=== PATIENT | male | born 1960 | race Two or more races ===

== ENCOUNTER 2024-02-15 09:46 | Inpatient (IN) | payer MEDICAID, SELFPAY ==
--- NOTE | 2024-02-15 10:29 | PD.EDRME ---
Rapid Medical Screening Exam RME Arrival date/time: 02/15/24 09:46 63-year-old male with a history of type 2 diabetes, hypertension was sent to the emergency room by his primary care provider for abnormal lab values. Patient states his primary care provider told him that he is to start dialysis due to acute kidney injury. I have greeted and performed a focused initial assessment of this patient. A comprehensive ED assessment and evaluation of the patient, analysis of all test results, and completion of the medical decision making process will be conducted by additional ED providers. Chief Complaint: General Adult/Misc Complain Vital signs reviewed by provider: Yes
[2024-02-15 10:51] VITALS: BP 152/82; PULSE 79; RESP 16; TEMP 37; O2SAT 99; BMI 31.6
[2024-02-15 11:25] LABS: Basophils % (Auto) 0 % (0-2.5); Eosinophils # (Auto) 0.2 Thou/mm3 (0.0-0.5); Eosinophils % (Auto) 4 % (0-10); Hematocrit 24.2 % (41.0-53.0); Immature Granulocytes % (Auto) 1 % (0-0); Immature Granulocytes Auto 0.03 Thou/mm3 (0.00-0.00); Lymphocytes # (Auto) 1.3 Thou/mm3 (1.0-4.8); Lymphocytes % (Auto) 31 % (10-50); Mean Corpuscular HGB Conc 33.9 g/dl (31.0-37.0); Mean Corpuscular Hemoglobin 30.4 pg (25.0-35.0); Mean Corpuscular Volume 90 fL (80-100); Monocytes # (Auto) 0.4 Thou/mm3 (0.0-0.8); Monocytes % (Auto) 11 % (0-12); Neutrophils # (Auto) 2.2 Thou/mm3 (1.8-7.7); Neutrophils % (Auto) 54 % (37-80); Nucleated Red Blood Cell % 0 /100 WBC (0); Platelet Count 285 Thou/mm3 (140-440); RDW Standard Deviation 42.8 fL (35.1-43.9); White Blood Count 4.1 Thou/mm3 (3.8-10.6)
[2024-02-15 11:46] LABS: INR 1.1 (0.9-1.3); Partial Thromboplastin Time 26.1 Seconds (22.0-36.0); Prothrombin Time 11.6 Seconds (9.0-12.2)
[2024-02-15 11:48] LABS: Alanine Aminotransferase 31 U/L (10-49); Albumin, Serum 4.9 gm/dL (3.4-4.8); Albumin/Globulin Ratio 1.8 (1.2-2.2); Alkaline Phosphatase 78 U/L (46-116); Anion Gap 10 (7-16); Aspartate Amino Transferase 24 U/L (0-34); BUN/Creatinine Ratio 19 Ratio (12-20); Bilirubin,Total 0.2 mg/dL (0.3-1.2); Blood Urea Nitrogen 80 mg/dL (9-23); Calcium 9.2 mg/dL (8.3-10.6); Calcium (Corrected) 9.2 mg/dL (8.5-10.1); Carbon Dioxide 19.7 mMol/L (20.0-31.0); Chloride 112 mMol/L (98-107); Creatinine (Component) 4.2 mg/dL (0.6-1.3); Estimated Creatinine Clearance 18.6 mL/min (>60); Globulin 2.7 gm/dL (2.3-3.5); Glucose 125 mg/dL (74-106); Lipase 22 U/L (12-53); Osmolality,Calculated 308 (275-295); Potassium 5.1 mMol/L (3.4-5.1); Sodium 142 mMol/L (136-145); Total Protein 7.6 gm/dL (5.7-8.2); eGFR 15 See Note
[2024-02-15 12:05] LABS: Collection Type, Urine Clean Catch; Squamous Epithelial Cell,Urine 0 /hpf (0-5)
[2024-02-15 12:14] LABS: Bilirubin,Urine Negative (Negative); Blood,Urine Negative (Negative); Clarity,Urine Clear (Clear/Hazy); Color,Urine Colorless (Lt Yel-Yel); Glucose, Urine 1+ (Negative); Ketones,Urine Negative (Negative); Leukocyte Esterase,Urine Negative (Negative); Nitrite,Urine Negative (Negative); Protein,Urine Trace (Neg - Trace); RBC,Urine 2 /hpf (0-3); Specific Gravity,Urine 1.014 (1.001-1.035); Urobilinogen,Urine Negative mg/dL (0.0-1.0); WBC,Urine < 1 /hpf (0-5)
[2024-02-15 12:38] LABS: Hemoglobin 8.2 g/dL (13.5-16.0)
--- NOTE | 2024-02-15 12:51 | EDNOTE_ITS ---
ED General RME/HPI General Chief complaint: General Adult/Misc Complain Stated complaint: SENT FOR ABNORMAL LABS Time Seen by Provider: 02/15/24 11:34 Arrival date/time: 02/15/24 09:46 CC: Renal failure patient referred to the ER via PCP for abnormal labs which includes kidney injury. Patient is somewhat stoic, has no specific complaints including chest pain shortness of breath or difficulty breathing. Patient was referred to the emergency room via Dr. Marina who is the security business analyst on consult, he is she is requested the patient hold his apixaban today and n.p.o. Patient agrees that he has not taken his medicine and has not had anything to eat. RME / HPI RME / HPI narrative: 02/15/24 09:46 63-year-old male with a history of type 2 diabetes, hypertension was sent to the emergency room by his primary care provider for abnormal lab values. Patient states his primary care provider told him that he is to start dialysis due to acute kidney injury. I have greeted and performed a focused initial assessment of this patient. A comprehensive ED assessment and evaluation of the patient, analysis of all test results, and completion of the medical decision making process will be conducted by additional ED providers. Related Data Home Medications ?Medication ?Instructions ?Recorded ?Confirmed fenofibrate 160 mg tablet 160 mg PO QDAY 06/07/22 06/07/22 insulin glargine 100 unit/mL (3 10 unit subcut QPM 06/07/22 06/07/22 mL) subcutaneous pen (Basaglar KwikPen U-100 Insulin) lisinopril 20 mg tablet 20 mg PO QDAY 06/07/22 06/07/22 semaglutide 7 mg tablet (Rybelsus) 7 mg PO QDAY 06/07/22 06/07/22 Previous Rx's ?Medication ?Instructions ?Recorded apixaban 5 mg tablet (Eliquis) 10 mg (2 x 5 mg) PO BID #28 tabs 06/27/23 Allergies Allergy/AdvReac Type Severity Reaction Status Date / Time No Known Drug Allergies Allergy Verified 06/27/23 16:31 Review of Systems Review of Systems Narrative Review of Systems: GEN: No fever, no chills, no weight loss EYES: No discharge, no visual changes, no pain HEENT: No ear pain, no congestion, no sore throat PULM: No shortness of breath, no cough, no congestion CV: No chest pain, no dyspnea on exertion, no palpitations GI: No nausea, no vomiting, no diarrhea, no pain, no constipation : No frequency, no urgency, no dysuria MUSC/SKEL: No joint pain, no back pain SKIN: No rash PSYCH: No hallucinations, no depression HEME/LYMPH: No easy bleeding or bruising tendencies NEURO: No weakness, no headache Past Medical History Past Medical History CARDIAC: Positive Hypertension; Negative Congestive Heart Failure RESPIRATORY: Negative Chronic Obstructive Pulmonary Disease (COPD) GENITOURINARY: Negative Renal Disease ENDOCRINE: Positive Diabetes Mellitus Type 2; Negative Diabetes Mellitus Type 1 Family History FAMILY HISTORY: Negative Family Neurologic Problems, Family Psychiatric Problems, Family Respiratory Disorders, Family Cardiac Disorders, Family Gastrointestinal Problems, Family Cancer, Family Surgery or Family Anesthesia Reaction Social History SMOKING STATUS: Never smoker SECOND HAND EXPOSURE: No SUBSTANCE USE: does not use ED Exam Narrative Physical exam: [General: Appears not in any acute distress Head normocephalic HEENT: Within acceptable limits Neck is supple nontender Chest equal chest rise nontender to palpation Respiratory: Clear to auscultation no wheezes crackles or rubs CV: Rate rhythm is regular no murmurs rubs or clicks Abdomen is soft nontender no masses positive bowel sounds all 4 quadrants Back: No CVA tenderness no spinous process tenderness from cervical spine thoracic and lumbar spine Skin: Intact no petechiae rash induration ulceration or crepitus Extremities: Moving all extremity against resistance cap refill less than 2 seconds neurosensory intact Neuro: Awake alert oriented x3 Glascow coma 15 no focal deficits] Course Quality Measures none Orders Category Date Time Status Saline [Insert IV] NOW Care 02/15/24 13:14 Active Consult to Nephrology Stat Cons 02/15/24 13:14 Ordered IR dialysis catheter insertion Stat Exams 02/15/24 Ordered CBC Stat Lab 02/15/24 10:43 Completed CMP [Comprehensive Metabolic Panel] Stat Lab 02/15/24 10:43 Completed Lipase Stat Lab 02/15/24 10:43 Completed PT [Prothrombin Time with INR] Stat Lab 02/15/24 10:43 Completed PTT [Partial Thromboplastin Time] Stat Lab 02/15/24 10:43 Completed Type and Screen Stat Lab 02/15/24 10:43 Received UA [Urinalysis] Stat Lab 02/15/24 11:57 Completed Urine Culture Stat Lab 02/15/24 11:57 Received Vital Signs Vital signs: Vital Signs Temperature 98.6 F 02/15/24 10:51 Pulse Rate 79 02/15/24 10:51 Respiratory Rate 16 02/15/24 10:51 Blood Pressure 152/82 H 02/15/24 10:51 Pulse Oximetry (%) 99 02/15/24 10:51 Oxygen Delivery Method Room Air 02/15/24 10:51 [facility] [place] Patient data External records reviewed:: [facility] previous records Clinical information provided by:: patient Social determinants that could affect healthcare access:: none Patient has the following chronic illnesses:: Diabetes hypertension on Eliquis How is presenting disease/condition affected by chronic disease/condition?: u neffected by Evaluation data The following diagnostics were reviewed and interpreted by me:: lab results and radiology exam(s) Lab and/or radiology exams considered but not ordered:: CBC shows WBC of 4.1 H&H of 8.2 and 24.2 respectively platelets of 285 CMP shows a sodium 142 potassium of 5.1 chloride of 112 CO2 of 19.7 BUN of 80 creatinine 4.2 with a glucose of 125 Urine is negative for urinary tract infection Coags within acceptable limits Interpretation Summary: Patient case discussed with Dr. Marina, nephrology, who is in the emergency room states she referred the patient to the ER for dialysis and dialysis catheter. Patient is in agreement with this plan the patient states he did not take his apixaban this morning, and has not eaten anything. I went ahead and put in the order for PermCath patient agrees to be admitted. Medications Medications considered but not ordered:: None Medication administrations:: None Consultations Consultation(s) initiated? (list below): Yes Consultation #1 (Physician, Specialty, Details): ashlie Time: 13:21 Diagnosis Differential Diagnosis ED Complaint MDM: Acute renal failure significant electrolyte imbalances anemia Most likely diagnosis given after review of the tests above:: FREEDOM anemia Admission Indicated Admission indicated?: indicated Explain why admission is indicated or not indicated:: Requires further medical management Admission Request Was there a request for admission?: No Disposition Plan Disposition Plan: Admit Medical Decision Making Differential Diagnosis Differential Diagnosis: Acute renal failure significant electrolyte imbalances anemia Lab Data 02/15/24 10:43 02/15/24 10:43 Labs: Lab Results 02/15/24 02/15/24 Range/Units 10:43 11:57 WBC 4.1 (3.8-10.6) Thou/mm3 RBC 2.70 L (4.50-5.90) Miln/mm3 Hgb 8.2 L (13.5-16.0) g/dL Hct 24.2 L (41.0-53.0) % MCV 90 (80-100) fL MCH 30.4 (25.0-35.0) pg MCHC 33.9 (31.0-37.0) g/dl RDW Std Deviation 42.8 (35.1-43.9) fL Plt Count 285 (140-440) Thou/mm3 Neut % (Auto) 54 (37-80) % Lymph % (Auto) 31 (10-50) % [place] % (Auto) 11 (0-12) % Eos % (Auto) 4 (0-10) % Baso % (Auto) 0 (0-2.5) % Neut # (Auto) 2.2 (1.8-7.7) Thou/mm3 Lymph # (Auto) 1.3 (1.0-4.8) Thou/mm3 [place] # (Auto) 0.4 (0.0-0.8) Thou/mm3 Eos # (Auto) 0.2 (0.0-0.5) Thou/mm3 Baso # (Auto) 0.0 (0.0-0.2) Thou/mm3 Immature Gran # (Auto) 0.03 H (0.00-0.00) Thou/mm3 Absolute Nucleated RBC 0.00 (0.00-0.00) Thou/mm3 Immature Gran % 1 H (0-0) % Nucleated RBC % 0 (0) /100 WBC PT 11.6 (9.0-12.2) Seconds INR 1.1 (0.9-1.3) APTT 26.1 (22.0-36.0) Seconds Sodium 142 (136-145) mMol/L Potassium 5.1 (3.4-5.1) mMol/L Chloride 112 H (98-107) mMol/L Carbon Dioxide 19.7 L (20.0-31.0) mMol/L Anion Gap 10 (7-16) BUN 80 H (9-23) mg/dL Creatinine 4.2 H* (0.6-1.3) mg/dL Estim Creat Clear Calc 18.6 L (>60) mL/min eGFR 15 L (60 - ) See Note BUN/Creatinine Ratio 19 (12-20) Ratio Glucose 125 H (74-106) mg/dL Calculated Osmolality 308 H (275-295) Calcium 9.2 (8.3-10.6) mg/dL Corrected Calcium 9.2 (8.5-10.1) mg/dL Total Bilirubin 0.2 L (0.3-1.2) mg/dL AST 24 (0-34) U/L ALT 31 (10-49) U/L Alkaline Phosphatase 78 (46-116) U/L Total Protein 7.6 (5.7-8.2) gm/dL Albumin 4.9 H (3.4-4.8) gm/dL Globulin 2.7 (2.3-3.5) gm/dL Albumin/Globulin Ratio 1.8 (1.2-2.2) Lipase 22 (12-53) U/L Ur Collection Type Clean Catch Urine Color Colorless A (Lt Yel-Yel) Urine Clarity Clear (Clear/Hazy) Urine pH 6.0 (5.0-7.0) Ur Specific [place] 1.014 (1.001-1.035) Urine Protein Trace (Neg - Trace) Urine Glucose (UA) 1+ A (Negative) Urine Ketones Negative (Negative) Urine Blood Negative (Negative) Urine Nitrite Negative (Negative) Urine Bilirubin Negative (Negative) Urine Urobilinogen (Auto) Negative (0.0-1.0) mg/dL Ur Leukocyte Esterase Negative (Negative) Urine RBC 2 (0-3) /hpf Urine WBC < 1 (0-5) /hpf Ur Squamous Epith Cells 0 (0-5) /hpf Urine Bacteria None (None) Discharge Plan Plan Patient Disposition: Other Care w/in Hosp (SDC/ALYCE) Patient condition on transfer: Stable Prescriptions/Referrals Prescriptions/Med Rec: No Action lisinopril 20 mg tablet 20 mg PO QDAY fenofibrate 160 mg tablet 160 mg PO QDAY Rybelsus 7 mg tablet 7 mg PO QDAY insulin glargine [Basaglar KwikPen U-100 Insulin] 100 unit/mL (3 mL) insulin pen 10 unit subcut QPM Eliquis 5 mg tablet 10 mg PO BID MDD 4 Qty: 28 0RF Referrals: Roxane([facility]ROLAN Sharpe [Primary Care Provider] - In 1 week Problem List Clinical Impression: Acute renal failure, Anemia Patient/Caregiver Discharge Instructions Print Language: Marshallese Stand Alone Forms: Lacey Award Info., Patient Portal Info Letter PA/ROCKET ENGINE COMPONENT MECHANIC Supervising Physician PA/ROCKET ENGINE COMPONENT MECHANIC Supervising Physician: Jorge Cortes ENP
--- NOTE | 2024-02-15 14:01 | PD.RESHP ---
Documentation for date of: 02/15/24 HPI History of Present Illness Chief complaint: Weakness History of present illness: 63-year-old male past medical history of hypertension, insulin-dependent diabetes, hyperlipidemia, status post right BKA (5 years ago) who presented to the ED from primary care physician office due to abnormal labs. Patient has been having weakness on and off for the whole year as well as left lower extremity edema. Patient states he feels tired most of the time but have on and off episodes of lethargy. Today patient went to PCP was found with abnormal labs and was sent to the ED in preparation for emergent dialysis. At this time patient denies any chest pain, shortness of breath, abdominal pain, nausea vomiting, diarrhea. Admitted for uremia and need for emergent dialysis. ED course: Vitals on admission significant for hypertension 152/82, labs significant for hemoglobin 8.2, bicarb 19.7, chloride 112 BUN 80, creatinine 4.2, glucose 125, UA was done was negative for infection PMHx: Hypertension, diabetes, hyperlipidemia SxHx: Right BKA Social Hx: Denies alcohol use, denies tobacco use, denies illicit substances including THC FHx: Unknown Review of Systems Review of Systems Narrative Review of Systems: Narrative ROS GENERAL: Denies fevers/chills or diaphoresis. HEENT: Denies headache or visual/hearing changes. Denies nasal discharge. NEURO: Denies unusual weakness or difficulty speaking. CARDIO: Denies chest pain or palpitations. PULM: Denies SOB, coughing, or wheezing. GI: Denies abdominal pain, N/V/C/D/reflux/gas, bright red blood per rectum or melena. Reports having BMs. URO: Denies burning/itching/pain/urinary changes. MSK/EXT/SKIN: Denies joint/skeletal/muscle pain, issues/changes in upper or lower extremities, itchiness, or superficial pain. PSYCH: Cooperative, pleasant mood & affect. The rest of the review of systems is otherwise negative. Exam Vital Signs Temp Pulse Resp BP Pulse Ox O2 Del Method 98.6 F 79 16 152/82 H 99 Room Air 02/15/24 10:51 02/15/24 10:51 02/15/24 10:51 02/15/24 10:51 02/15/24 10:51 02/15/24 10:51 Narrative Exam Physical Exam GENERAL: NAD, AAOx3 HEENT: Moist mucosa. Eyes open, symmetrical, & clear CARDIO: Heart RRR, no obvious murmurs PULM: No noted coughing/dyspnea CTA B/L, no R/W/R GI: Abdomen soft, nondistended, no pain on palpation. BSx4 SKIN/MSK/EXT: Right BKA with prosthesis, left lower extremity edema +1, no pain on palpation. Pedal pulses present B/L NEURO: AAOx3, no focal neuro deficits, able to move all 4 extremities Results: Labs 02/16/24 04:35 02/16/24 04:35 Labs: Short CBC 02/15/24 Range/Units 10:43 WBC 4.1 (3.8-10.6) Thou/mm3 Hgb 8.2 L (13.5-16.0) g/dL Hct 24.2 L (41.0-53.0) % Plt Count 285 (140-440) Thou/mm3 BMP 02/15/24 10:43 Sodium 142 Potassium 5.1 Chloride 112 H Carbon Dioxide 19.7 L BUN 80 H Creatinine 4.2 H* Glucose 125 H Calcium 9.2 Liver Function 02/15/24 Range/Units 10:43 Total Bilirubin 0.2 L (0.3-1.2) mg/dL AST 24 (0-34) U/L ALT 31 (10-49) U/L Alkaline Phosphatase 78 (46-116) U/L Albumin 4.9 H (3.4-4.8) gm/dL Urine 02/15/24 Range/Units 11:57 Urine Color Colorless A (Lt Yel-Yel) Urine Clarity Clear (Clear/Hazy) Urine pH 6.0 (5.0-7.0) Ur Specific [place] 1.014 (1.001-1.035) Urine Protein Trace (Neg - Trace) Urine Glucose (UA) 1+ A (Negative) Quality Measures Quality Measures none Medications Home Medications and Allergies Home Medications ?Medication ?Instructions ?Recorded ?Confirmed ?Type fenofibrate 160 mg tablet 160 mg PO QDAY 06/07/22 02/15/24 History insulin glargine 100 unit/mL (3 10 unit subcut QPM 06/07/22 02/15/24 History mL) subcutaneous pen (Basaglar KwikPen U-100 Insulin) lisinopril 20 mg tablet 10 mg PO QDAY 06/07/22 02/15/24 History semaglutide 7 mg tablet (Rybelsus) 7 mg PO QDAY 06/07/22 02/15/24 History Allergies Allergy/AdvReac Type Severity Reaction Status Date / Time No Known Drug Allergies Allergy Verified 06/27/23 16:31 Visit Medications Acetaminophen (Acetaminophen 325 Mg Tablet) 650 mg PO Q6H PRN PRN Reason: Fever >100.5 Stop: 03/16/24 13:46 Acetaminophen (Acetaminophen 325 Mg Tablet) 650 mg PO Q6H PRN PRN Reason: PAIN SCALE 1-3 (mild Stop: 03/16/24 13:46 Docusate Sodium (Docusate Sod 100 Mg Capsule) 100 mg PO QDAY [facility]; Protocol Stop: 03/17/24 08:59 Heparin Sodium (Porcine) (Heparin Sod Inj 5000 Unit/Ml Vial) 5,000 unit SC Q8HR MIKE Stop: 02/29/24 13:59 Ondansetron HCl (Ondansetron Inj 2 Mg/Ml Inj 2 Ml) 4 mg IV Q6H PRN; Protocol PRN Reason: NAUSEA OR VOMITING Stop: 03/16/24 13:46 Assessment & Plan Plan 63-year-old male with past medical history of hypertension, hyperlipidemia, insulin-dependent diabetes who was sent to the ED by PCP due to abnormal labs. Will be admitted for emergent dialysis due to uremia. #Uremia #Emergent dialysis #FREEDOM Patient is complaining of on and off weakness throughout the year, and lower extremity swelling Admission labs show BUN of 80, creatinine of 4.[address] Marina Baseline creatinine unknown -Pending dialysis catheter placement -Start hemodialysis -Nephrology, Dr. Marina consulted, appreciate recommendations #Hypertension Patient takes lisinopril at home, we will hold at this time due to FREEDOM # Insulin-dependent diabetes type 2 -Sliding scale insulin -Hypoglycemia protocol in place Case discussed with my senior Dr. Manriquez PGY-[address] Imani Leon MD PGY-1 Disposition: Telemetry Fluids: None Feeding: Thrombo prophylaxis: Heparin Gastric Ulcer prophylaxis: None CODE STATUS: Full code Attending Provider Attestation/Addendum I reviewed labs, imaging, EKG, home medications and prior available records. Face to face evaluation was performed by me. I have personally examined the patient and discussed assessment and plan with the IM team. I reviewed the resident note and agree with the plan with exceptions as below. ESRD Insulin-dependent diabetes mellitus New hemodialysis candidate Chronic anemia, likely anemia of CKD History of DVT Consult IR for dialysis line insertion Consulted nephrology to start hemodialysis Monitor BMP Monitor H&H Resume home insulin and monitor fingersticks Hold apixaban prior to dialysis line insertion
--- NOTE | 2024-02-15 14:43 | ESCONSULT_ITS ---
History of Present Illness Data of Consult Consult date: 02/15/24 Requesting Physician: Epifanio Diallo MD Primary Care Provider: Dell Betts([facility]) CONTACT C[facility] PROFESSIONAL Consult Narrative Reason for consult: FREEDOM--ESRD History of present illness: Mr. 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 However patient was very leery and did not come yesterday. He presented today complaining of tired and swelling in the lower extremities and weakness. Labs consistent with advanced kidney failure. Patient admitted to medical team. Nephrology consultation requested in view of need for dialysis. Patient stopped taking Eliquis yesterday. Will get dialysis catheter tomorrow and dialysis will be initiated tomorrow. In the emergency department-blood pressure 152/82, WBC 4.1, hemoglobin 8.2, platelets 285. Sodium 142, potassium 5.1, bicarbonate 19.7, BUN 80, creatinine 4.2, GFR 15, glucose 220, A1c 9.3, calcium 9.2, LFTs normal, albumin 4.9, urinalysis shows 1+ glucose. Patient currently seen in the emergency department. cc:: cc: Epifanio Diallo MD Review of Systems Review of Systems Narrative Review of Systems: CONSTITUTIONAL: Patient denies any fever, chills. Complaining of fatigue and tired HEENT: Denies any visual disturbances or hearing problems. CARDIOVASCULAR: Patient denies any chest pain. c/o shortness of breath, swelling in the lower extremities. PULMONARY: Patient c/o shortness of breath GASTROINTESTINAL: Patient denies any abdominal pain, constipation, nausea, vomiting, diarrhea. GENITOURINARY: Patient denies any urinary symptoms of burning or frequency or hematuria,++form in the urine. SKIN: Denies any rash. MUSCULOSKELETAL: Denies any muscular skeletal problems of joint pains. NEUROLOGICAL: Denies any neurological problems of strokes, seizures or confusion. Denies any memory problems. Past Medical History Past Medical History CARDIAC: Positive Hypercholesterolemia, Deep Vein Thrombosis (left leg on eliquis) and Hypertension; Negative Congestive Heart Failure RESPIRATORY: Negative Chronic Obstructive Pulmonary Disease (COPD) GENITOURINARY: Positive Renal Disease ENDOCRINE: Positive Diabetes Mellitus Type 2; Negative Diabetes Mellitus Type 1 HEMATOLOGIC: Negative Blood Disorders OTHER HISTORY: Positive Hospitalization (blood clot july 2023); Negative Falls or Cancer Family History FAMILY HISTORY: Negative Family Neurologic Problems, Family Psychiatric Problems, Family Respiratory Disorders, Family Cardiac Disorders, Family Gastrointestinal Problems, Family Cancer, Family Surgery or Family Anesthesia Reaction Surgical History SURGICAL: Positive Amputation (right BKA) Social History SMOKING STATUS: Former smoker SECOND HAND EXPOSURE: No SUBSTANCE USE: does not use Meds Home Medications and Allergies Home Medications ?Medication ?Instructions ?Recorded ?Confirmed ?Type fenofibrate 160 mg tablet 160 mg PO QDAY 06/07/22 02/15/24 History insulin glargine 100 unit/mL (3 10 unit subcut QPM 06/07/22 02/15/24 History mL) subcutaneous pen (Basaglar KwikPen U-100 Insulin) lisinopril 20 mg tablet 10 mg PO QDAY 06/07/22 02/15/24 History semaglutide 7 mg tablet (Rybelsus) 7 mg PO QDAY 06/07/22 02/15/24 History Allergies Allergy/AdvReac Type Severity Reaction Status Date / Time No Known Drug Allergies Allergy Verified 06/27/23 16:31 Exam Vital Signs Temp Pulse Resp BP Pulse Ox O2 Del Method 37.0 C 79 16 152/82 H 99 Room Air 02/15/24 10:51 02/15/24 10:51 02/15/24 10:51 02/15/24 10:51 02/15/24 10:51 02/15/24 10:51 Narrative Exam GENERAL APPEARANCE: Patient seems to be comfortable, adequately hydrated and nourished. HEENT: EOMI, PERRLA NECK: Neck supple, no JVD or bruit CARDIOVASCULAR: Heart regular, no murmurs LUNGS/CHEST: Chest clear to auscultation. No rales, rhonchi, wheezing ABDOMEN: Soft, nontender, nondistended. No masses. Normal bowel sounds. EXTREMITIES: No edema, clubbing or cyanosis. SKIN: Skin exam normal without any rashes MUSCULOSKELETAL: Rt BKA. Tense Edema in the left lower extremity NEUROLOGICAL : No neurological deficits Results Labs 02/16/24 04:35 02/15/24 10:43 Labs: Short CBC 02/15/24 Range/Units 10:43 WBC 4.1 (3.8-10.6) Thou/mm3 Hgb 8.2 L (13.5-16.0) g/dL Hct 24.2 L (41.0-53.0) % Plt Count 285 (140-440) Thou/mm3 BMP 02/15/24 10:43 Sodium 142 Potassium 5.1 Chloride 112 H Carbon Dioxide 19.7 L BUN 80 H Creatinine 4.2 H* Glucose 125 H Calcium 9.2 Liver Function 02/15/24 Range/Units 10:43 Total Bilirubin 0.2 L (0.3-1.2) mg/dL AST 24 (0-34) U/L ALT 31 (10-49) U/L Alkaline Phosphatase 78 (46-116) U/L Albumin 4.9 H (3.4-4.8) gm/dL Urine 02/15/24 Range/Units 11:57 Urine Color Colorless A (Lt Yel-Yel) Urine Clarity Clear (Clear/Hazy) Urine pH 6.0 (5.0-7.0) Ur Specific [place] 1.014 (1.001-1.035) Urine Protein Trace (Neg - Trace) Urine Glucose (UA) 1+ A (Negative) Assessment & Plan Assessment and plan (1) Acute renal failure: Status: Acute Assessment and plan: Patient has a worsening renal function with underlying CKD stage IV/V secondary to diabetic/hypertensive nephrosclerosis. Has been under my care for the last couple of years. Poorly controlled diabetes and hypertension. Sent to the hospital for need for dialysis due to his worsening azotemia. Patient consented for dialysis. Will place catheter tomorrow. On Eliquis for DVT-will be held (2) CKD stage 5 due to type 2 diabetes mellitus: Status: Acute Assessment and plan: CKD stage V secondary to diabetic nephropathy/hypertension. All the sequelae-anemia, renal osteodystrophy, nephropathy,, edema (3) Diabetes: Status: Acute Assessment and plan: Accu-Cheks, sliding scale. A1c 9.2. (4) Hypertension: Status: Acute Assessment and plan: At home he is on lisinopril-can be initiated as patient will start dialysis. (5) Anemia: Status: Acute Assessment and plan: Will give iron, Epogen with dialysis (6) Hyperlipidemia: Status: Acute Assessment and plan: Switch fenofibrate to statin. Additional Assessment & Plan Additional Plan: Thank you Dr. Diallo for allowing me to participate in the care of Mr. Arreaga
--- NOTE | 2024-02-15 14:52 | PC.NURSE ---
Called laborer chees[employer] what time they will do catheter placement, per Dr. Grullon they will do it tomorrow d/t pt was on blood thinner. Dr. Marina aware.
--- NOTE | 2024-02-15 14:55 | PC.NURSE ---
notified ER nurse of postponed procedure until tomorrow per md jimenez orders. MD jimenez recommend to hold blood thinners and draw coag in the morning.
--- NOTE | 2024-02-15 14:56 | PC.NURSE ---
SPOKE WITH NURSE FROM [facility]. NURSE STATES THAT THEY ARE GOING TO POSTPONE PT'S DIALYSIS CATH PLACEMENT TILL TOMORROW AND TO HAVE ANY BLOOD THINNERS HELD TILL AFTER PROCEDURE IS DONE. WILL INFORM PRIMARY NURSE AND MD AT THIS TIME
[2024-02-15 15:01] LABS: Glucose Estimated Average 220 mg/dL (80-131); Hemoglobin A1C 9.3 % Hgb (4.8-6.0)
[2024-02-15 15:33] VITALS: BP 149/79; PULSE 80; RESP 18; TEMP 37.1; O2SAT 100
--- NOTE | 2024-02-15 15:44 | PC.NURSE ---
INFORMED DR COBOS THAT PT'S DIALYSIS CATHETER INSERTION WAS POSTPONED TILL TOMORROW PER [facility] NURSE AND THEY WANT ALL BLOOD THINNERS HELD AT THIS TIME TILL AFTER CATHETER IS PLACED. OKAY PER DR COBOS
[2024-02-15 20:17] VITALS: BP 145/84; PULSE 74; RESP 19; TEMP 37.1; O2SAT 100
[2024-02-15 20:20] VITALS: PULSE 74
[2024-02-16] VITALS (22 sets, daily range): BP systolic 113–170; BP diastolic 55–91; PULSE 68–84; RESP 16–27; TEMP 36.1–36.9; O2SAT 94–100; BMI 23.9
--- NOTE | 2024-02-16 | XR_ITS ---
Ultrasound-guided needle placement right internal jugular vein Permanent tunneled dialysis catheter insertion, percutaneous Fluoroscopy AP chest, portable, INDICATIONS: Renal failure, need for stat and long-term dialysis with a permanent tunneled dialysis catheter Date and time of procedure: February 16, 2024 at 1440 hours Informed consent provided Technique: A timeout was completed verifying correct patient, procedure, site, positioning, and special equipment if applicable. The patient was placed in a dependent position appropriate for dialysis catheter placement based on the vein to be cannulated. The patient'sright neck was prepped and draped in sterile fashion. Maximum Sterile Barrier Technique used including cap, mask, sterile gown, sterile gloves, and sterile full body drape. If ultrasound technique used: sterile gel and sterile probe covers. Hand Hygiene performed using proper scrub, soap and water, or alcohol-based hand rub. 1% lidocaine was used to anesthetize the surrounding skin area The [facility] [employer] portable ultrasound apparatus utilized to confirm patency of the right internal jugular vein Utilizing ultrasonographic guidance successful 21-gauge needle puncture right internal jugular vein. Ultrasound images were recorded and stored. Vessel micropuncture was performed with 21-gauge needle. 0.18 wire guide is introduced into the vein. 0.18 wire is introduced into the vena cava under fluoroscopy. Subcutaneous tunnel formed in the upper chest. Permanent tunneled dialysis catheter placed in the subcutaneous tunnel. Dilators were introduced over the J-wire guide. Tunneled dialysis catheter is introduced through a dilator with venous sheath into the superior vena cava under fluoroscopic guidance. The catheter is sutured in place to the skin and a sterile dressing applied. Perfusion to the extremity distal to the point of catheter insertion is checked and found to be adequate Attending radiologist was present for the entire procedure Estimated blood loss2 cc. The patient tolerated the procedure well and there were no complications Impression: Successful ultrasound-guided needle placement right internal jugular vein Successful permanent tunneled dialysis catheter insertion, percutaneous Fluoroscopy 0.2 minute radiation dose 1.89 milligray 1 spot fluoroscopic chest film. AP chest performed at completion procedure demonstrates satisfactory position dialysis catheter. May use dialysis catheter.
--- NOTE | 2024-02-16 06:15 | PC.NURSE ---
PT RECEIVED FROM TELE VIA BED. RESIDENT LATVIAN SPEAKING. ALERT, ORIENTED, SMILING NO COMPLAINTS OF PAIN/DISCOMFORT. PT SITUATED IN ROOM, CALL LIGHT PROVIDED, BED LOWEST POSITION. PT REMAINS NPO AND REMINDED PT NOT TO EAT OR DRINK. RESUME CARE.
[2024-02-16 06:16] LABS: Basophils % (Auto) 0 % (0-2.5); Eosinophils # (Auto) 0.2 Thou/mm3 (0.0-0.5); Eosinophils % (Auto) 4 % (0-10); Hematocrit 24.9 % (41.0-53.0); Immature Granulocytes % (Auto) 0 % (0-0); Immature Granulocytes Auto 0.02 Thou/mm3 (0.00-0.00); Lymphocytes # (Auto) 1.9 Thou/mm3 (1.0-4.8); Lymphocytes % (Auto) 37 % (10-50); Mean Corpuscular HGB Conc 33.7 g/dl (31.0-37.0); Mean Corpuscular Hemoglobin 30.3 pg (25.0-35.0); Mean Corpuscular Volume 90 fL (80-100); Monocytes # (Auto) 0.5 Thou/mm3 (0.0-0.8); Monocytes % (Auto) 9 % (0-12); Neutrophils # (Auto) 2.6 Thou/mm3 (1.8-7.7); Neutrophils % (Auto) 50 % (37-80); Nucleated Red Blood Cell % 0 /100 WBC (0); Platelet Count 300 Thou/mm3 (140-440); RDW Standard Deviation 43.4 fL (35.1-43.9); Red Blood Count 2.77 Miln/mm3 (4.50-5.90); White Blood Count 5.2 Thou/mm3 (3.8-10.6)
[2024-02-16 06:33] LABS: Hemoglobin 8.4 g/dL (13.5-16.0)
[2024-02-16 06:58] LABS: Alanine Aminotransferase 32 U/L (10-49); Albumin, Serum 4.9 gm/dL (3.4-4.8); Albumin/Globulin Ratio 1.8 (1.2-2.2); Alkaline Phosphatase 62 U/L (46-116); Anion Gap 11 (7-16); Aspartate Amino Transferase 27 U/L (0-34); BUN/Creatinine Ratio 18 Ratio (12-20); Bilirubin,Total 0.3 mg/dL (0.3-1.2); Blood Urea Nitrogen 72 mg/dL (9-23); Calcium 9.3 mg/dL (8.3-10.6); Calcium (Corrected) 9.3 mg/dL (8.5-10.1); Cardiac Risk Estimate 2.8 RATIO (4.0-6.7); Chloride 111 mMol/L (98-107); Cholesterol 125 mg/dL (132-200); Estimated Creatinine Clearance 16.9 mL/min (>60); Globulin 2.7 gm/dL (2.3-3.5); Glucose 106 mg/dL (74-106); HDL Cholesterol 44 mg/dL (40-60); LDL Cholesterol,Calculated 55 mg/dL (0-130); Magnesium 2.5 mg/dL (1.6-2.6); Osmolality,Calculated 304 (275-295); Phosphorous 4.2 mg/dL (2.4-5.1); Potassium 4.8 mMol/L (3.4-5.1); Sodium 142 mMol/L (136-145); Total Protein 7.6 gm/dL (5.7-8.2); Triglycerides 130 mg/dL (30-150); eGFR 16 See Note
[2024-02-16 08:21] LABS: Hepatitis A Antibody IgM Non Reactive (Non React); Hepatitis B Core Antibody IgM Non Reactive (Non React); Hepatitis B Surface Antigen Non Reactive (Non React); Hepatitis C Antibody Non Reactive (Non React)
--- NOTE | 2024-02-16 08:55 | PD.NEPHPROG ---
Documentation for date of: 02/16/24 Subjective Subjective Interval history: Mr. 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 However patient was very leery and did not come yesterday. He presented today complaining of tired and swelling in the lower extremities and weakness. Labs consistent with advanced kidney failure. Patient admitted to medical team. Nephrology consultation requested in view of need for dialysis. Patient stopped taking Eliquis yesterday. Will get dialysis catheter tomorrow and dialysis will be initiated tomorrow. In the emergency department-blood pressure 152/82, WBC 4.1, hemoglobin 8.2, platelets 285. Sodium 142, potassium 5.1, bicarbonate 19.7, BUN 80, creatinine 4.2, GFR 15, glucose 220, A1c 9.3, calcium 9.2, LFTs normal, albumin 4.9, urinalysis shows 1+ glucose. Patient currently seen in the emergency department. 02/16/2024 patient got a permanent dialysis catheter and is currently on dialysis. Labs, medications reviewed. Shortness of breath slightly better. Edema better. Review of Systems Review of Systems Narrative Review of Systems: CONSTITUTIONAL: Patient denies any fever, chills. Complaining of fatigue and tired HEENT: Denies any visual disturbances or hearing problems. CARDIOVASCULAR: Patient denies any chest pain. c/o shortness of breath, swelling in the lower extremities. PULMONARY: Patient c/o shortness of breath GASTROINTESTINAL: Patient denies any abdominal pain, constipation, nausea, vomiting, diarrhea. GENITOURINARY: Patient denies any urinary symptoms of burning or frequency or hematuria,++form in the urine. SKIN: Denies any rash. MUSCULOSKELETAL: Denies any muscular skeletal problems of joint pains. NEUROLOGICAL: Denies any neurological problems of strokes, seizures or confusion. Denies any memory problems. Exam Vital Signs Temp Pulse Resp BP Pulse Ox O2 Del Method 36.2 C 72 19 131/80 H 99 Room Air 02/16/24 08:00 02/16/24 08:00 02/16/24 08:00 02/16/24 08:00 02/16/24 08:00 02/16/24 08:00 Narrative Exam GENERAL APPEARANCE: Patient seems to be comfortable, adequately hydrated and nourished. HEENT: EOMI, PERRLA NECK: Neck supple, no JVD or bruit CARDIOVASCULAR: Heart regular, no murmurs LUNGS/CHEST: Chest clear to auscultation. No rales, rhonchi, wheezing ABDOMEN: Soft, nontender, nondistended. No masses. Normal bowel sounds. EXTREMITIES: No edema, clubbing or cyanosis. SKIN: Skin exam normal without any rashes MUSCULOSKELETAL: Rt BKA. Tense Edema in the left lower extremity NEUROLOGICAL : No neurological deficits Objective Labs 02/18/24 06:03 02/18/24 06:03 Labs: Laboratory Results - last 24 hr 02/15/24 02/15/24 02/16/24 10:43 11:57 04:35 WBC 4.1 5.2 RBC 2.70 L 2.77 L Hgb 8.2 L 8.4 L Hct 24.2 L 24.9 L MCV 90 90 MCH 30.4 30.3 MCHC 33.9 33.7 RDW Std Deviation 42.8 43.4 Plt Count 285 300 Neut % (Auto) 54 50 Lymph % (Auto) 31 37 [place] % (Auto) 11 9 Eos % (Auto) 4 4 Baso % (Auto) 0 0 Neut # (Auto) 2.2 2.6 Lymph # (Auto) 1.3 1.9 [place] # (Auto) 0.4 0.5 Eos # (Auto) 0.2 0.2 Baso # (Auto) 0.0 0.0 Immature Gran # (Auto) 0.03 H 0.02 H Absolute Nucleated RBC 0.00 0.00 Immature Gran % 1 H 0 Nucleated RBC % 0 0 PT 11.6 INR 1.1 APTT 26.1 Sodium 142 142 Potassium 5.1 4.8 Chloride 112 H 111 H Carbon Dioxide 19.7 L 20.0 Anion Gap 10 11 BUN 80 H 72 H Creatinine 4.2 H* 4.0 H Estim Creat Clear Calc 18.6 L 16.9 L eGFR 15 L 16 L BUN/Creatinine Ratio 19 18 Glucose [address] Glu mg/dL 220 H Hemoglobin A1c 9.3 H Calculated Osmolality 308 H 304 H Calcium 9.2 9.3 Corrected Calcium 9.2 9.3 Phosphorus 4.2 Magnesium 2.5 Total Bilirubin 0.2 L 0.3 AST 24 27 ALT 31 32 Alkaline Phosphatase 78 62 D Total Protein 7.6 7.6 Albumin 4.9 H 4.9 H Globulin 2.7 2.7 Albumin/Globulin Ratio 1.8 1.8 Triglycerides 130 Cholesterol 125 L LDL Cholesterol, Calc 55 HDL Cholesterol 44 Cholesterol/HDL Ratio 2.8 L Lipase 22 TSH 1.70 Ur Collection Type Clean Catch Urine Color Colorless A Urine Clarity Clear Urine pH 6.0 Ur Specific [place] 1.014 Urine Protein Trace Urine Glucose (UA) 1+ A Urine Ketones Negative Urine Blood Negative Urine Nitrite Negative Urine Bilirubin Negative Urine Urobilinogen (Auto) Negative Ur Leukocyte Esterase Negative Urine RBC 2 Urine WBC < 1 Ur Squamous Epith Cells 0 Urine Bacteria None Hepatitis A IgM Ab Non Reactive Hep Bs Antigen Non Reactive Hep B Core IgM Ab Non Reactive Hepatitis C Antibody Non Reactive Blood Type O Positive Antibody Screen NEGATIVE Blood Bank Wristband ID Yes Assessment & Plan Assessment and plan (1) Acute renal failure: Status: Acute (2) CKD stage 5 due to type 2 diabetes mellitus: Status: Acute (3) Diabetes: Status: Acute (4) Hypertension: Status: Acute (5) Anemia: Status: Acute (6) Hyperlipidemia: Status: Acute Additional Assessment & Plan Additional Plan: (1) end-stage renal failure: Status: Acute Assessment and plan: Patient has a worsening renal function with underlying CKD stage IV/V secondary to diabetic/hypertensive nephrosclerosis progressed towards ESRD.. Has been under my care for the last couple of years. Poorly controlled diabetes and hypertension. Sent to the hospital for need for dialysis due to his worsening azotemia. Patient consented for dialysis. Dialysis catheter placed. Patient currently seen on dialysis. Tolerating dialysis without any problems. Hemodialysis for 2 hours, 2K, ultrafiltration 1 L, Epogen 6000, no heparin ordered. Plan of care discussed with the dialysis nurse. Please see dialysis flowsheet for further details. (2) CKD stage 5 due to type 2 diabetes mellitus: Status: Acute Assessment and plan: CKD stage V secondary to diabetic nephropathy/hypertension-progressed to ESRD All the sequelae-anemia, renal osteodystrophy, nephropathy,, edema (3) Diabetes: Status: Acute Assessment and plan: Accu-Cheks, sliding scale. A1c 9.2. (4) Hypertension: Status: Acute Assessment and plan: At home he is on lisinopril-can be initiated as patient will start dialysis. (5) Anemia: Status: Acute Assessment and plan: Will give iron, Epogen with dialysis (6) Hyperlipidemia: Status: Acute Assessment and plan: on statin. Quality - progress note Quality Measures Quality Measures: VTE prophylaxis Reason for Continued Stay Reason for Continued Stay: further monitoring
[2024-02-16] MEDS: Lisinopril 2.5 MG TABLET 10 MG PO (09:49)
--- NOTE | 2024-02-16 10:30 | PD.RESPRO ---
Documentation for date of: 02/16/24 Subjective Subjective Interval history: Patient seen today at the bedside found awake, alert, oriented x 3. No overnight events reported. Vital signs stable at this time. Labs significant for anion worsening kidney function. Patient is pending hemodialysis catheter placement and begin hemodialysis sessions today. Blood pressure found to be elevated started lisinopril as taken at home as recommended by nephrology. Exam Vital Signs Temp Pulse Resp BP Pulse Ox O2 Del Method 97.2 F 72 19 131/80 H 99 Room Air 02/16/24 08:00 02/16/24 09:49 02/16/24 08:00 02/16/24 09:49 02/16/24 08:00 02/16/24 08:00 Narrative Exam Physical Exam GENERAL: NAD, AAOx3 HEENT: Moist mucosa. Eyes open, symmetrical, & clear CARDIO: Heart RRR, no obvious murmurs PULM: No noted coughing/dyspnea CTA B/L, no R/W/R GI: Abdomen soft, nondistended, no pain on palpation. BSx4 SKIN/MSK/EXT: Right BKA with prosthesis, left lower extremity edema +1, no pain on palpation. Pedal pulses present B/L NEURO: AAOx3, no focal neuro deficits, able to move all 4 extremities Objective Labs 02/16/24 04:35 02/16/24 04:35 Labs: Laboratory Results - last 24 hr 02/15/24 02/15/24 02/16/24 10:43 11:57 04:35 WBC 4.1 5.2 RBC 2.70 L 2.77 L Hgb 8.2 L 8.4 L Hct 24.2 L 24.9 L MCV 90 90 MCH 30.4 30.3 MCHC 33.9 33.7 RDW Std Deviation 42.8 43.4 Plt Count 285 300 Neut % (Auto) 54 50 Lymph % (Auto) 31 37 [place] % (Auto) 11 9 Eos % (Auto) 4 4 Baso % (Auto) 0 0 Neut # (Auto) 2.2 2.6 Lymph # (Auto) 1.3 1.9 [place] # (Auto) 0.4 0.5 Eos # (Auto) 0.2 0.2 Baso # (Auto) 0.0 0.0 Immature Gran # (Auto) 0.03 H 0.02 H Absolute Nucleated RBC 0.00 0.00 Immature Gran % 1 H 0 Nucleated RBC % 0 0 PT 11.6 INR 1.1 APTT 26.1 Sodium 142 142 Potassium 5.1 4.8 Chloride 112 H 111 H Carbon Dioxide 19.7 L 20.0 Anion Gap 10 11 BUN 80 H 72 H Creatinine 4.2 H* 4.0 H Estim Creat Clear Calc 18.6 L 16.9 L eGFR 15 L 16 L BUN/Creatinine Ratio 19 18 Glucose [address] Glu mg/dL 220 H Hemoglobin A1c 9.3 H Calculated Osmolality 308 H 304 H Calcium 9.2 9.3 Corrected Calcium 9.2 9.3 Phosphorus 4.2 Magnesium 2.5 Total Bilirubin 0.2 L 0.3 AST 24 27 ALT 31 32 Alkaline Phosphatase 78 62 D Total Protein 7.6 7.6 Albumin 4.9 H 4.9 H Globulin 2.7 2.7 Albumin/Globulin Ratio 1.8 1.8 Triglycerides 130 Cholesterol 125 L LDL Cholesterol, Calc 55 HDL Cholesterol 44 Cholesterol/HDL Ratio 2.8 L Lipase 22 TSH 1.70 Ur Collection Type Clean Catch Urine Color Colorless A Urine Clarity Clear Urine pH 6.0 Ur Specific [place] 1.014 Urine Protein Trace Urine Glucose (UA) 1+ A Urine Ketones Negative Urine Blood Negative Urine Nitrite Negative Urine Bilirubin Negative Urine Urobilinogen (Auto) Negative Ur Leukocyte Esterase Negative Urine RBC 2 Urine WBC < 1 Ur Squamous Epith Cells 0 Urine Bacteria None Hepatitis A IgM Ab Non Reactive Hep Bs Antigen Non Reactive Hep B Core IgM Ab Non Reactive Hepatitis C Antibody Non Reactive Blood Type O Positive Antibody Screen NEGATIVE Blood Bank Wristband ID Yes Quality Measures Quality Measures none Assessment & Plan Assessment Current Active Medications: Generic Name Dose Route Start Last Admin Trade Name Freq PRN Reason Stop Dose Admin Acetaminophen 650 mg 02/15/24 13:47 Acetaminophen 325 Mg Tablet PO 03/16/24 13:46 Q6H PRN Fever >100.5 Acetaminophen 650 mg 02/15/24 13:47 Acetaminophen 325 Mg Tablet PO 03/16/24 13:46 Q6H PRN PAIN SCALE 1-3 (mild Atorvastatin Calcium 20 mg 02/16/24 21:00 Atorvastatin Calcium 20 Mg Tablet PO 03/17/24 20:59 HS MIKE Dextrose 25 ml 02/15/24 14:19 Dextrose 50%-Water Inj 50 Ml Syringe IV 03/16/24 14:18 Q15MIN PRN BG 50-70 responsive npo pt Dextrose 50 ml 02/15/24 14:19 Dextrose 50%-Water Inj 50 Ml Syringe IV 03/16/24 14:18 Q15MIN PRN BG <50 OR BG <70 & pt unresponsive Docusate Sodium 100 mg 02/16/24 09:00 02/16/24 09:49 Docusate Sod 100 Mg Capsule PO 03/17/24 08:59 Not Given QDAY [facility] Protocol Glucagon 1 mg 02/15/24 14:19 Glucagon Inj 1 Mg Vial IM Q15MIN PRN BG <70, and no IV access Heparin Sodium (Porcine) 5,000 unit 02/15/24 14:00 02/15/24 14:56 Heparin Sod Inj 5000 Unit/Ml Vial SC 02/29/24 13:59 Not Given Q8HR [facility] Insulin Human Lispro 0 unit 02/15/24 17:00 02/16/24 08:24 Insulin Lispro (Admelog) 1 Unit/0.01 Ml Unit SC 03/16/24 16:59 Not Given AC [facility] Protocol Lisinopril 10 mg 02/16/24 09:00 02/16/24 09:49 Lisinopril 2.5 Mg Tablet PO 03/17/24 08:59 10 mg QDAY MIKE Administration Ondansetron HCl 4 mg 02/15/24 13:47 Ondansetron Inj 2 Mg/Ml Inj 2 Ml IV 03/16/24 13:46 Q6H PRN NAUSEA OR VOMITING Protocol Pharmacy Consult 1 each 02/16/24 09:00 Pharmacy To Consult Pneumovacc XX 03/17/24 08:59 PRN PRN CONSULT Plan 63-year-old male with past medical history of hypertension, hyperlipidemia, insulin-dependent diabetes who was sent to the ED by PCP due to abnormal labs. Will be admitted for emergent dialysis due to uremia. #Uremia #Emergent dialysis #FREEDOM Patient is complaining of on and off weakness throughout the year, and lower extremity swelling Admission labs show BUN of 80, creatinine of 4.[address] Marina Baseline creatinine unknown -Pending dialysis catheter placement -Start hemodialysis -Nephrology, Dr. Marina consulted, appreciate recommendations #Hypertension Patient takes lisinopril at home, we will hold at this time due to FREEDOM Resume lisinopril 20 mg daily as taken at home # Insulin-dependent diabetes type 2 -Sliding scale insulin -Hypoglycemia protocol in place Case discussed with my senior Dr. Manriquez PGY-[address] Imani Leon MD PGY-1 Disposition: Telemetry Fluids: None Feeding: Thrombo prophylaxis: Heparin Gastric Ulcer prophylaxis: None CODE STATUS: Full code Attending Provider Attestation/Addendum I reviewed labs, imaging, EKG, home medications and prior available records. Face to face evaluation was performed by me. I have personally examined the patient and discussed assessment and plan with the IM team. I reviewed the resident note and agree with the plan with exceptions as below. ESRD Insulin-dependent diabetes mellitus New hemodialysis candidate Chronic anemia, likely anemia of CKD History of DVT Consult IR for dialysis line insertion Consulted nephrology to start hemodialysis Monitor BMP Monitor H&H Resume home insulin and monitor fingersticks Hold apixaban prior to dialysis line insertion
[2024-02-16] MEDS: TUBERCULIN PPD INJ 5 UNIT/0.1 ML DOSE ID (12:00)
[2024-02-16] MEDS: SODIUM CHLORIDE 0.9% 250 ML 250 ML 20 ML IV (14:55)
[2024-02-16] MEDS: HEPARIN SOD LOCK SYR 100 UNIT/ML 500 UNIT INTRACATH (15:00)
[2024-02-16] MEDS: fentaNYL CIT INJ 50 mCg/ML AMP 2ML 75 MCG IVP (15:18)
[2024-02-16] MEDS: HEPARIN SOD INJ 5000 UNIT/ML VIAL 10 ML 3300 UNIT INTRACATH (15:52)
[2024-02-16] MEDS: HEPARIN SOD INJ 1000 UNIT/ML VIAL 10 ML 3300 UNIT INDWELLCAT (18:19)
[2024-02-16] MEDS: ATORVASTATIN CALCIUM 20 MG TABLET PO (21:19)
[2024-02-17] VITALS (21 sets, daily range): BP systolic 91–179; BP diastolic 56–94; PULSE 66–82; RESP 15–20; TEMP 36.2–36.9; O2SAT 95–99
[2024-02-17 05:49] LABS: Basophils % (Auto) 0 % (0-2.5); Eosinophils # (Auto) 0.1 Thou/mm3 (0.0-0.5); Eosinophils % (Auto) 3 % (0-10); Hematocrit 23.4 % (41.0-53.0); Immature Granulocytes % (Auto) 0 % (0-0); Immature Granulocytes Auto 0.01 Thou/mm3 (0.00-0.00); Lymphocytes # (Auto) 1.3 Thou/mm3 (1.0-4.8); Lymphocytes % (Auto) 27 % (10-50); Mean Corpuscular HGB Conc 34.6 g/dl (31.0-37.0); Mean Corpuscular Hemoglobin 30.7 pg (25.0-35.0); Mean Corpuscular Volume 89 fL (80-100); Monocytes # (Auto) 0.5 Thou/mm3 (0.0-0.8); Monocytes % (Auto) 11 % (0-12); Neutrophils # (Auto) 2.9 Thou/mm3 (1.8-7.7); Neutrophils % (Auto) 59 % (37-80); Nucleated Red Blood Cell % 0 /100 WBC (0); Platelet Count 260 Thou/mm3 (140-440); Red Blood Count 2.64 Miln/mm3 (4.50-5.90); White Blood Count 4.9 Thou/mm3 (3.8-10.6)
[2024-02-17 05:54] LABS: Hemoglobin 8.1 g/dL (13.5-16.0)
[2024-02-17 06:18] LABS: Alanine Aminotransferase 31 U/L (10-49); Albumin, Serum 4.5 gm/dL (3.4-4.8); Albumin/Globulin Ratio 1.7 (1.2-2.2); Alkaline Phosphatase 57 U/L (46-116); Anion Gap 10 (7-16); Aspartate Amino Transferase 19 U/L (0-34); BUN/Creatinine Ratio 16 Ratio (12-20); Bilirubin,Total 0.3 mg/dL (0.3-1.2); Blood Urea Nitrogen 55 mg/dL (9-23); Calcium 9.1 mg/dL (8.3-10.6); Calcium (Corrected) 9.1 mg/dL (8.5-10.1); Carbon Dioxide 24.5 mMol/L (20.0-31.0); Chloride 105 mMol/L (98-107); Creatinine (Component) 3.5 mg/dL (0.6-1.3); Estimated Creatinine Clearance 19.3 mL/min (>60); Globulin 2.7 gm/dL (2.3-3.5); Glucose 198 mg/dL (74-106); Magnesium 2.2 mg/dL (1.6-2.6); Osmolality,Calculated 298 (275-295); Phosphorous 4.7 mg/dL (2.4-5.1); Potassium 4.3 mMol/L (3.4-5.1); Sodium 139 mMol/L (136-145); Total Protein 7.2 gm/dL (5.7-8.2); eGFR 19 See Note
[2024-02-17] MEDS: INSULIN LISPRO (AdmeLOG) 1 UNIT/0.01 ML UNIT SC ×3 (07:54→17:19)
--- NOTE | 2024-02-17 08:33 | PD.RESPRO ---
Documentation for date of: 02/17/24 Exam Vital Signs Temp Pulse Resp BP Pulse Ox O2 Del Method O2 Flow Rate 98.4 F 70 18 124/76 97 Room Air 2 02/17/24 08:17 02/17/24 08:30 02/17/24 08:17 02/17/24 08:30 02/17/24 08:17 02/17/24 04:00 02/16/24 15:30 Objective Labs 02/17/24 04:22 02/17/24 04:22 Labs: Laboratory Results - last 24 hr 02/17/24 04:22 WBC 4.9 RBC 2.64 L Hgb 8.1 L Hct 23.4 L MCV 89 MCH 30.7 MCHC 34.6 RDW Std Deviation 42.0 Plt Count 260 D Neut % (Auto) 59 Lymph % (Auto) 27 [place] % (Auto) 11 Eos % (Auto) 3 Baso % (Auto) 0 Neut # (Auto) 2.9 Lymph # (Auto) 1.3 [place] # (Auto) 0.5 Eos # (Auto) 0.1 Baso # (Auto) 0.0 Immature Gran # (Auto) 0.01 H Absolute Nucleated RBC 0.00 Immature Gran % 0 Nucleated RBC % 0 Sodium 139 Potassium 4.3 D Chloride 105 Carbon Dioxide 24.5 Anion Gap 10 BUN 55 H Creatinine 3.5 H D Estim Creat Clear Calc 19.3 L eGFR 19 L BUN/Creatinine Ratio 16 Glucose 198 H D Calculated Osmolality 298 H Calcium 9.1 Corrected Calcium 9.1 Phosphorus 4.7 Magnesium 2.2 Total Bilirubin 0.3 AST 19 ALT 31 Alkaline Phosphatase 57 Total Protein 7.2 Albumin 4.5 Globulin 2.7 Albumin/Globulin Ratio 1.7 Quality Measures Quality Measures none Assessment & Plan Assessment Current Active Medications: Generic Name Dose Route Start Last Admin Trade Name Freq PRN Reason Stop Dose Admin Acetaminophen 650 mg 02/15/24 13:47 Acetaminophen 325 Mg Tablet PO 03/16/24 13:46 Q6H PRN Fever >100.5 Acetaminophen 650 mg 02/15/24 13:47 Acetaminophen 325 Mg Tablet PO 03/16/24 13:46 Q6H PRN PAIN SCALE 1-3 (mild Atorvastatin Calcium 20 mg 02/16/24 21:00 02/16/24 21:19 Atorvastatin Calcium 20 Mg Tablet PO 03/17/24 20:59 20 mg HS MIKE Administration Dextrose 25 ml 02/15/24 14:19 Dextrose 50%-Water Inj 50 Ml Syringe IV 03/16/24 14:18 Q15MIN PRN BG 50-70 responsive npo pt Dextrose 50 ml 02/15/24 14:19 Dextrose 50%-Water Inj 50 Ml Syringe IV 03/16/24 14:18 Q15MIN PRN BG <50 OR BG <70 & pt unresponsive Docusate Sodium 100 mg 02/16/24 09:00 02/16/24 09:49 Docusate Sod 100 Mg Capsule PO 03/17/24 08:59 Not Given QDAY [facility] Protocol Glucagon 1 mg 02/15/24 14:19 Glucagon Inj 1 Mg Vial IM Q15MIN PRN BG <70, and no IV access Heparin Sodium (Porcine) 5,000 unit 02/15/24 14:00 02/15/24 14:56 Heparin Sod Inj 5000 Unit/Ml Vial SC 02/29/24 13:59 Not Given Q8HR MIKE Heparin Sodium (Porcine) 3,300 unit 02/16/24 18:12 02/16/24 18:19 Heparin Sod Inj 1000 Unit/Ml Vial 10 Ml INDWELLCAT 03/01/24 18:11 3,300 unit X1 PRN Administration DIALYSIS Albumin Human 25 gm in 100 mls @ 100 mls/min 02/16/24 18:12 Albuminar-25 Ivpb IV PRN PRN DIALYSIS Insulin Human Lispro 0 unit 02/15/24 17:00 02/17/24 07:54 Insulin Lispro (Admelog) 1 Unit/0.01 Ml Unit SC 03/16/24 16:59 2 unit AC MIKE Administration Protocol Lisinopril 10 mg 02/16/24 09:00 02/16/24 09:49 Lisinopril 2.5 Mg Tablet PO 03/17/24 08:59 10 mg QDAY MIKE Administration Ondansetron HCl 4 mg 02/15/24 13:47 Ondansetron Inj 2 Mg/Ml Inj 2 Ml IV 03/16/24 13:46 Q6H PRN NAUSEA OR VOMITING Protocol Pharmacy Consult 1 each 02/16/24 09:00 Pharmacy To Consult Pneumovacc XX 03/17/24 08:59 PRN PRN CONSULT
--- NOTE | 2024-02-17 08:45 | PC.NURSE ---
Multiple arterial alarms, blood speed decreased to 200.
--- NOTE | 2024-02-17 10:42 | ESPR_ITS ---
Documentation for date of: 02/17/24 Subjective Subjective Interval history: Mr. 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 However patient was very leery and did not come yesterday. He presented today complaining of tired and swelling in the lower extremities and weakness. Labs consistent with advanced kidney failure. Patient admitted to medical team. Nephrology consultation requested in view of need for dialysis. Patient stopped taking Eliquis yesterday. Will get dialysis catheter tomorrow and dialysis will be initiated tomorrow. In the emergency department-blood pressure 152/82, WBC 4.1, hemoglobin 8.2, platelets 285. Sodium 142, potassium 5.1, bicarbonate 19.7, BUN 80, creatinine 4.2, GFR 15, glucose 220, A1c 9.3, calcium 9.2, LFTs normal, albumin 4.9, urinalysis shows 1+ glucose. Patient currently seen in the emergency department. 02/17/2024 patient currently on second dialysis session. Next dialysis scheduled for tomorrow. Outpatient dialysis arrangements to be done. He is feeling much better. Shortness of breath and edema better. Medications, labs ordered. Review of Systems Review of Systems Narrative Review of Systems: CONSTITUTIONAL: Patient denies any fever, chills. Feeling slightly better HEENT: Denies any visual disturbances or hearing problems. CARDIOVASCULAR: Patient denies any chest pain. c/o shortness of breath, swelling in the lower extremities- better PULMONARY: Shortness of breath better GASTROINTESTINAL: Patient denies any abdominal pain, constipation, nausea, vomiting, diarrhea. GENITOURINARY: Patient denies any urinary symptoms of burning or frequency or hematuria,++form in the urine. SKIN: Denies any rash. MUSCULOSKELETAL: Denies any muscular skeletal problems of joint pains. NEUROLOGICAL: Denies any neurological problems of strokes, seizures or confusion. Denies any memory problems. Exam Vital Signs Temp Pulse Resp BP Pulse Ox O2 Del Method O2 Flow Rate 36.9 C 72 18 117/59 L 97 Room Air 2 02/17/24 08:17 02/17/24 10:30 02/17/24 08:17 02/17/24 10:30 02/17/24 08:17 02/17/24 08:00 02/16/24 15:30 Narrative Exam GENERAL APPEARANCE: Patient seems to be comfortable, adequately hydrated and nourished. On dialysis HEENT: EOMI, PERRLA NECK: Neck supple, no JVD or bruit CARDIOVASCULAR: Heart regular, no murmurs LUNGS/CHEST: Chest clear to auscultation. No rales, rhonchi, wheezing ABDOMEN: Soft, nontender, nondistended. No masses. Normal bowel sounds. EXTREMITIES: 1+ edema in the lower extremities SKIN: Skin exam normal without any rashes . RIJ dialysis catheter MUSCULOSKELETAL: Rt BKA. Tense Edema in the left lower extremity NEUROLOGICAL : No neurological deficits Objective Labs 02/18/24 06:03 02/18/24 06:03 Labs: Laboratory Results - last 24 hr 02/17/24 04:22 WBC 4.9 RBC 2.64 L Hgb 8.1 L Hct 23.4 L MCV 89 MCH 30.7 MCHC 34.6 RDW Std Deviation 42.0 Plt Count 260 D Neut % (Auto) 59 Lymph % (Auto) 27 [place] % (Auto) 11 Eos % (Auto) 3 Baso % (Auto) 0 Neut # (Auto) 2.9 Lymph # (Auto) 1.3 [place] # (Auto) 0.5 Eos # (Auto) 0.1 Baso # (Auto) 0.0 Immature Gran # (Auto) 0.01 H Absolute Nucleated RBC 0.00 Immature Gran % 0 Nucleated RBC % 0 Sodium 139 Potassium 4.3 D Chloride 105 Carbon Dioxide 24.5 Anion Gap 10 BUN 55 H Creatinine 3.5 H D Estim Creat Clear Calc 19.3 L eGFR 19 L BUN/Creatinine Ratio 16 Glucose 198 H D Calculated Osmolality 298 H Calcium 9.1 Corrected Calcium 9.1 Phosphorus 4.7 Magnesium 2.2 Total Bilirubin 0.3 AST 19 ALT 31 Alkaline Phosphatase 57 Total Protein 7.2 Albumin 4.5 Globulin 2.7 Albumin/Globulin Ratio 1.7 Assessment & Plan Assessment and plan (1) Diabetes: Status: Acute (2) Hypertension: Status: Acute (3) Anemia: Status: Acute (4) Hyperlipidemia: Status: Acute (5) ESRD needing dialysis: Status: Acute (6) Acute renal failure: Status: Acute (7) CKD stage 5 due to type 2 diabetes mellitus: Status: Acute Additional Assessment & Plan Additional Plan: (1) End-stage renal failure: Secondary to diabetic nephropathy Status: Acute Assessment and plan: Patient has a worsening renal function with underlying CKD stage IV/V secondary to diabetic/hypertensive nephrosclerosis progressed towards ESRD.. Has been under my care for the last couple of years. Poorly controlled diabetes and hypertension. Sent to the hospital for need for dialysis due to his worsening azotemia. Patient consented for dialysis. Dialysis catheter placed. Patient currently seen on dialysis. Tolerating dialysis without any problems. Hemodialysis for 2.5hours, 2K, ultrafiltration 1 L, Epogen 6000, no heparin ordered. Plan of care discussed with the dialysis nurse. Please see dialysis flowsheet for further details. Next dialysis scheduled for tomorrow. Outpatient dialysis will be arranged. Hepatitis, PPD placed. (2) CKD stage 5 due to type 2 diabetes mellitus: Status: Acute Assessment and plan: CKD stage V secondary to diabetic nephropathy/hypertension-progressed to ESRD All the sequelae-anemia, renal osteodystrophy, nephropathy,, edema (3) Diabetes: Status: Acute Assessment and plan: Accu-Cheks, sliding scale. A1c 9.2. (4) Hypertension: Status: Acute Assessment and plan: At home he is on lisinopril-can be initiated as patient will start dialysis. (5) Anemia: Status: Acute Assessment and plan: Will give iron, Epogen with dialysis (6) Hyperlipidemia: Status: Acute Assessment and plan: Switch fenofibrate to statin. Quality - progress note Quality Measures Quality Measures: VTE prophylaxis Reason for Continued Stay Reason for Continued Stay: further monitoring
[2024-02-17] MEDS: HEPARIN SOD INJ 1000 UNIT/ML VIAL 10 ML 3300 UNIT INDWELLCAT (11:03)
[2024-02-17] MEDS: DOCUSATE SOD 100 MG CAPSULE PO (11:12)
[2024-02-17] MEDS: Lisinopril 2.5 MG TABLET 10 MG PO (11:12)
--- NOTE | 2024-02-17 11:43 | PC.SS ---
SS met with patient regarding his d/c plan. Pt is alert/oriented. Pt was admitted for Emergent Hemodialysis Pt confirmed demographic and contact information is correct on facesheet. Pt resides alone. Pt ambulates independently without assistance or DME. Pt is ok with all ADLs. Patient?s pharmacy of choice is. Pt named his brother, Cande Arreaga medical decision maker if he is unable. Pt is new dialysis. Pt does not have an advance directive, SS offered, and pt declined. Pt states he diabetic and has glucometer/test stips. Pt states he has prostatic leg. Pt followed up with PCP January 26, 2024. D/C plan: Return home Next of Kin: Cande Arreaga, brother, phone# [phone] PCP: Dr. Dell Jo from [facility] Address: Correct on facesheet
--- NOTE | 2024-02-17 11:44 | PC.SS ---
Follow up note: Pt is new dialysis with Dr. Marina and is requiring dialysis chair time. Dialysis catheter was placed yesterday. Pt will have first dialysis session today. Patient's health insurance will require authorization for dialysis chair time. TB test is pending.
[2024-02-17] MEDS: EPOETIN ALFA-EPBX INJ 10,000 UNIT/ML VIAL (ESRD) 10000 UNIT SC (12:12)
--- NOTE | 2024-02-17 13:33 | ESPR_ITS ---
Documentation for date of: 02/17/24 Subjective Subjective Interval history: Patient seen at bedside today. He is resting comfortably in bed. He is scheduled for a second dialysis session today and patient will receive 1 more dialysis session tomorrow. We are pending a dialysis chair in the outpatient setting. Exam Vital Signs Temp Pulse Resp BP Pulse Ox O2 Del Method O2 Flow Rate 97.6 F 75 18 128/67 96 Room Air 2 02/17/24 10:53 02/17/24 12:00 02/17/24 10:53 02/17/24 11:12 02/17/24 10:53 02/17/24 08:00 02/16/24 15:30 Narrative Exam GENERAL APPEARANCE: Patient seems to be comfortable, adequately hydrated and nourished. HEENT: EOMI, PERRLA NECK: Neck supple, no JVD or bruit CARDIOVASCULAR: Heart regular, no murmurs LUNGS/CHEST: Chest clear to auscultation. No rales, rhonchi, wheezing ABDOMEN: Soft, nontender, nondistended. No masses. Normal bowel sounds. EXTREMITIES: No edema, clubbing or cyanosis. SKIN: Skin exam normal without any rashes MUSCULOSKELETAL: Rt BKA. Tense Edema in the left lower extremity NEUROLOGICAL : No neurological deficits Objective Labs 02/18/24 06:03 02/18/24 06:03 Labs: Laboratory Results - last 24 hr 02/17/24 04:22 WBC 4.9 RBC 2.64 L Hgb 8.1 L Hct 23.4 L MCV 89 MCH 30.7 MCHC 34.6 RDW Std Deviation 42.0 Plt Count 260 D Neut % (Auto) 59 Lymph % (Auto) 27 [place] % (Auto) 11 Eos % (Auto) 3 Baso % (Auto) 0 Neut # (Auto) 2.9 Lymph # (Auto) 1.3 [place] # (Auto) 0.5 Eos # (Auto) 0.1 Baso # (Auto) 0.0 Immature Gran # (Auto) 0.01 H Absolute Nucleated RBC 0.00 Immature Gran % 0 Nucleated RBC % 0 Sodium 139 Potassium 4.3 D Chloride 105 Carbon Dioxide 24.5 Anion Gap 10 BUN 55 H Creatinine 3.5 H D Estim Creat Clear Calc 19.3 L eGFR 19 L BUN/Creatinine Ratio 16 Glucose 198 H D Calculated Osmolality 298 H Calcium 9.1 Corrected Calcium 9.1 Phosphorus 4.7 Magnesium 2.2 Total Bilirubin 0.3 AST 19 ALT 31 Alkaline Phosphatase 57 Total Protein 7.2 Albumin 4.5 Globulin 2.7 Albumin/Globulin Ratio 1.7 Quality Measures Quality Measures none Assessment & Plan Assessment Current Active Medications: Generic Name Dose Route Start Last Admin Trade Name Freq PRN Reason Stop Dose Admin Acetaminophen 650 mg 02/15/24 13:47 Acetaminophen 325 Mg Tablet PO 03/16/24 13:46 Q6H PRN Fever >100.5 Acetaminophen 650 mg 02/15/24 13:47 Acetaminophen 325 Mg Tablet PO 03/16/24 13:46 Q6H PRN PAIN SCALE 1-3 (mild Atorvastatin Calcium 20 mg 02/16/24 21:00 02/16/24 21:19 Atorvastatin Calcium 20 Mg Tablet PO 03/17/24 20:59 20 mg HS MIKE Administration Dextrose 25 ml 02/15/24 14:19 Dextrose 50%-Water Inj 50 Ml Syringe IV 03/16/24 14:18 Q15MIN PRN BG 50-70 responsive npo pt Dextrose 50 ml 02/15/24 14:19 Dextrose 50%-Water Inj 50 Ml Syringe IV 03/16/24 14:18 Q15MIN PRN BG <50 OR BG <70 & pt unresponsive Docusate Sodium 100 mg 02/16/24 09:00 02/17/24 11:12 Docusate Sod 100 Mg Capsule PO 03/17/24 08:59 100 mg QDAY MIKE Administration Protocol Glucagon 1 mg 02/15/24 14:19 Glucagon Inj 1 Mg Vial IM Q15MIN PRN BG <70, and no IV access Heparin Sodium (Porcine) 5,000 unit 02/15/24 14:00 02/15/24 14:56 Heparin Sod Inj 5000 Unit/Ml Vial SC 02/29/24 13:59 Not Given Q8HR MIKE Heparin Sodium (Porcine) 3,300 unit 02/16/24 18:12 02/17/24 11:03 Heparin Sod Inj 1000 Unit/Ml Vial 10 Ml INDWELLCAT 03/01/24 18:11 3,300 unit X1 PRN Administration DIALYSIS Albumin Human 25 gm in 100 mls @ 100 mls/min 02/16/24 18:12 Albuminar-25 Ivpb IV PRN PRN DIALYSIS Insulin Human Lispro 0 unit 02/15/24 17:00 02/17/24 11:23 Insulin Lispro (Admelog) 1 Unit/0.01 Ml Unit SC 03/16/24 16:59 2 unit AC MIKE Administration Protocol Lisinopril 10 mg 02/16/24 09:00 02/17/24 11:12 Lisinopril 2.5 Mg Tablet PO 03/17/24 08:59 10 mg QDAY MIKE Administration Ondansetron HCl 4 mg 02/15/24 13:47 Ondansetron Inj 2 Mg/Ml Inj 2 Ml IV 03/16/24 13:46 Q6H PRN NAUSEA OR VOMITING Protocol Pharmacy Consult 1 each 02/16/24 09:00 Pharmacy To Consult Pneumovacc XX 03/17/24 08:59 PRN PRN CONSULT Plan 63-year-old male with past medical history of hypertension, hyperlipidemia, insulin-dependent diabetes who was sent to the ED by PCP due to abnormal labs. Will be admitted for emergent dialysis due to uremia. #Uremia #Emergent dialysis #FREEDOM Patient is complaining of on and off weakness throughout the year, and lower extremity swelling Admission labs show BUN of 80, creatinine of 4.[address] Marina Baseline creatinine unknown -Pending dialysis catheter placement -Start hemodialysis -Nephrology, Dr. Marina consulted, appreciate recommendations #Hypertension Patient takes lisinopril at home, we will hold at this time due to FREEDOM Resume lisinopril 20 mg daily as taken at home # Insulin-dependent diabetes type 2 -Sliding scale insulin -Hypoglycemia protocol in place Disposition: Telemetry Fluids: None Feeding: Thrombo prophylaxis: Heparin Gastric Ulcer prophylaxis: None CODE STATUS: Full code Plan of care discussed with supervising attending Dr. Imani Curiel M.D. PGY-3 Attending Provider Attestation/Addendum I reviewed labs, imaging, EKG, home medications and prior available records. Face to face evaluation was performed by me. I have personally examined the patient and discussed assessment and plan with the IM team. I reviewed the resident note and agree with the plan with exceptions as below. 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
--- NOTE | 2024-02-17 15:38 | PC.SS ---
SS has sent inquiry to [facility] for dialysis chair time.
[2024-02-17] MEDS: ATORVASTATIN CALCIUM 20 MG TABLET PO (20:41)
[2024-02-18] VITALS (26 sets, daily range): BP systolic 93–135; BP diastolic 49–85; PULSE 68–77; RESP 16–18; TEMP 36.2–37; O2SAT 96–98; BMI 30.2
[2024-02-18 06:28] LABS: Basophils % (Auto) 0 % (0-2.5); Eosinophils # (Auto) 0.2 Thou/mm3 (0.0-0.5); Eosinophils % (Auto) 2 % (0-10); Hematocrit 24.2 % (41.0-53.0); Immature Granulocytes % (Auto) 1 % (0-0); Immature Granulocytes Auto 0.04 Thou/mm3 (0.00-0.00); Lymphocytes # (Auto) 1.9 Thou/mm3 (1.0-4.8); Lymphocytes % (Auto) 25 % (10-50); Mean Corpuscular HGB Conc 34.7 g/dl (31.0-37.0); Mean Corpuscular Hemoglobin 31.1 pg (25.0-35.0); Mean Corpuscular Volume 90 fL (80-100); Monocytes # (Auto) 0.9 Thou/mm3 (0.0-0.8); Monocytes % (Auto) 12 % (0-12); Neutrophils # (Auto) 4.6 Thou/mm3 (1.8-7.7); Neutrophils % (Auto) 60 % (37-80); Nucleated Red Blood Cell % 0 /100 WBC (0); Platelet Count 215 Thou/mm3 (140-440); RDW Standard Deviation 40.1 fL (35.1-43.9); White Blood Count 7.7 Thou/mm3 (3.8-10.6)
[2024-02-18 06:29] LABS: Hemoglobin 8.4 g/dL (13.5-16.0)
[2024-02-18 07:05] LABS: Alanine Aminotransferase 29 U/L (10-49); Albumin, Serum 4.6 gm/dL (3.4-4.8); Albumin/Globulin Ratio 1.8 (1.2-2.2); Alkaline Phosphatase 70 U/L (46-116); Anion Gap 9 (7-16); Aspartate Amino Transferase 24 U/L (0-34); BUN/Creatinine Ratio 13 Ratio (12-20); Bilirubin,Total 0.4 mg/dL (0.3-1.2); Blood Urea Nitrogen 67 mg/dL (9-23); Carbon Dioxide 23.8 mMol/L (20.0-31.0); Chloride 98 mMol/L (98-107); Globulin 2.6 gm/dL (2.3-3.5); Glucose 289 mg/dL (74-106); Osmolality,Calculated 293 (275-295); Phosphorous 6.1 mg/dL (2.4-5.1); Potassium 4.4 mMol/L (3.4-5.1); Sodium 131 mMol/L (136-145); Total Protein 7.2 gm/dL (5.7-8.2); eGFR 12 See Note
[2024-02-18] MEDS: INSULIN GLARGINE (Lantus) 5 UNIT/0.05 ML (PER 5 UNITS) 10 UNIT SC (07:52)
[2024-02-18] MEDS: INSULIN LISPRO (AdmeLOG) 1 UNIT/0.01 ML UNIT SC ×3 (07:52→17:15)
--- NOTE | 2024-02-18 08:25 | PD.NEPHPROG ---
Documentation for date of: 02/18/24 Subjective Subjective Interval history: Mr. 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 However patient was very leery and did not come yesterday. He presented today complaining of tired and swelling in the lower extremities and weakness. Labs consistent with advanced kidney failure. Patient admitted to medical team. Nephrology consultation requested in view of need for dialysis. Patient stopped taking Eliquis yesterday. Will get dialysis catheter tomorrow and dialysis will be initiated tomorrow. In the emergency department-blood pressure 152/82, WBC 4.1, hemoglobin 8.2, platelets 285. Sodium 142, potassium 5.1, bicarbonate 19.7, BUN 80, creatinine 4.2, GFR 15, glucose 220, A1c 9.3, calcium 9.2, LFTs normal, albumin 4.9, urinalysis shows 1+ glucose. Patient currently seen in the emergency department. 02/17/2024 patient currently on second dialysis session. Next dialysis scheduled for tomorrow. Outpatient dialysis arrangements to be done. He is feeling much better. Shortness of breath and edema better. Medications, labs ordered. 02/18/2024 patient currently seen on his third dialysis treatment. Renal anderson stable for discharge if outpatient dialysis arrangements made. Labs, medications have been reviewed. Review of Systems Review of Systems Narrative Review of Systems: CONSTITUTIONAL: Patient denies any fever, chills. Feeling slightly better HEENT: Denies any visual disturbances or hearing problems. CARDIOVASCULAR: Patient denies any chest pain. c/o shortness of breath, swelling in the lower extremities- better PULMONARY: Shortness of breath better GASTROINTESTINAL: Patient denies any abdominal pain, constipation, nausea, vomiting, diarrhea. GENITOURINARY: Patient denies any urinary symptoms of burning or frequency or hematuria,++form in the urine. SKIN: Denies any rash. MUSCULOSKELETAL: Denies any muscular skeletal problems of joint pains. NEUROLOGICAL: Denies any neurological problems of strokes, seizures or confusion. Denies any memory problems. Exam Vital Signs Temp Pulse Resp BP Pulse Ox O2 Del Method O2 Flow Rate 36.7 C 74 16 108/67 98 Room Air 2 02/18/24 07:53 02/18/24 07:53 02/18/24 07:53 02/18/24 07:53 02/18/24 07:53 02/18/24 07:53 02/16/24 15:30 Narrative Exam GENERAL APPEARANCE: Patient seems to be comfortable, adequately hydrated and nourished. On dialysis HEENT: EOMI, PERRLA NECK: Neck supple, no JVD or bruit CARDIOVASCULAR: Heart regular, no murmurs LUNGS/CHEST: Chest clear to auscultation. No rales, rhonchi, wheezing ABDOMEN: Soft, nontender, nondistended. No masses. Normal bowel sounds. EXTREMITIES: 1+ edema in the lower extremities SKIN: Skin exam normal without any rashes . RIJ dialysis catheter MUSCULOSKELETAL: Rt BKA. Tense Edema in the left lower extremity NEUROLOGICAL : No neurological deficits Objective Labs 02/18/24 06:03 02/18/24 06:03 Labs: Laboratory Results - last 24 hr 02/18/24 06:03 WBC 7.7 D RBC 2.70 L Hgb 8.4 L Hct 24.2 L MCV 90 MCH 31.1 MCHC 34.7 RDW Std Deviation 40.1 Plt Count 215 D Neut % (Auto) 60 Lymph % (Auto) 25 [place] % (Auto) 12 Eos % (Auto) 2 Baso % (Auto) 0 Neut # (Auto) 4.6 Lymph # (Auto) 1.9 [place] # (Auto) 0.9 H Eos # (Auto) 0.2 Baso # (Auto) 0.0 Immature Gran # (Auto) 0.04 H Absolute Nucleated RBC 0.00 Immature Gran % 1 H Nucleated RBC % 0 Sodium 131 L Potassium 4.4 Chloride 98 Carbon Dioxide 23.8 Anion Gap 9 BUN 67 H Creatinine 5.0 H* D Estim Creat Clear Calc 15.0 L eGFR 12 L* BUN/Creatinine Ratio 13 Glucose 289 H D Calculated Osmolality 293 Calcium 9.0 Corrected Calcium 9.0 Phosphorus 6.1 H Magnesium 2.0 Total Bilirubin 0.4 AST 24 ALT 29 Alkaline Phosphatase 70 D Total Protein 7.2 Albumin 4.6 Globulin 2.6 Albumin/Globulin Ratio 1.8 Assessment & Plan Assessment and plan (1) Diabetes: Status: Acute (2) Hypertension: Status: Acute (3) Anemia: Status: Acute (4) Hyperlipidemia: Status: Acute (5) ESRD needing dialysis: Status: Acute (6) Acute renal failure: Status: Acute (7) CKD stage 5 due to type 2 diabetes mellitus: Status: Acute Additional Assessment & Plan Additional Plan: (1) End-stage renal failure: Secondary to diabetic nephropathy Status: Acute Assessment and plan: Patient has a worsening renal function with underlying CKD stage IV/V secondary to diabetic/hypertensive nephrosclerosis progressed towards ESRD.. Has been under my care for the last couple of years. Poorly controlled diabetes and hypertension. Sent to the hospital for need for dialysis due to his worsening azotemia. Patient consented for dialysis. Dialysis catheter placed. Patient currently seen on dialysis. Tolerating dialysis without any problems. Hemodialysis for 3 hours, 2K, ultrafiltration 1 L, Epogen 6000, no heparin ordered. Plan of care discussed with the dialysis nurse. Please see dialysis flowsheet for further details. Next dialysis scheduled for Tuesday. Outpatient dialysis will be arranged. Hepatitis nl, PPD placed. (2) CKD stage 5 due to type 2 diabetes mellitus: Status: Acute Assessment and plan: CKD stage V secondary to diabetic nephropathy/hypertension-progressed to ESRD All the sequelae-anemia, renal osteodystrophy, nephropathy,, edema (3) Diabetes: Status: Acute Assessment and plan: Accu-Cheks, sliding scale. A1c 9.2. (4) Hypertension: Status: Acute Assessment and plan: At home he is on lisinopril-can be initiated as patient will start dialysis. (5) Anemia: Status: Acute Assessment and plan: Will give iron, Epogen with dialysis (6) Hyperlipidemia: Status: Acute Assessment and plan: Switch fenofibrate to statin.
[2024-02-18] MEDS: INSULIN GLARGINE (Lantus) 5 UNIT/0.05 ML (PER 5 UNITS) 15 UNIT SC (09:34)
[2024-02-18] MEDS: ALBUMIN HUMAN 25% IVPB 25 GM/100 ML BTL IV (10:45)
[2024-02-18] MEDS: EPOETIN ALFA-EPBX INJ 40,000 UNIT/ML VIAL (ESRD) 10000 UNIT SC (10:54)
[2024-02-18] MEDS: HEPARIN SOD INJ 1000 UNIT/ML VIAL 10 ML 3300 UNIT INDWELLCAT (12:57)
[2024-02-18] MEDS: INSULIN LISPRO (AdmeLOG) 1 UNIT/0.01 ML UNIT 3 UNIT SC ×2 (13:10→17:14)
--- NOTE | 2024-02-18 13:18 | PC.SS ---
SS spoke with [facility], unable to confirm if pt insurance has authorized insurance; currently unable to confirm chair time; recommended to contact Tuesday SS left message for [facility] for chair time
[2024-02-18] MEDS: Lisinopril 2.5 MG TABLET 10 MG PO (13:21)
[2024-02-18] MEDS: DOCUSATE SOD 100 MG CAPSULE PO (13:21)
[2024-02-18] MEDS: APIXABAN 2.5 MG TABLET 5 MG PO (20:10)
[2024-02-18] MEDS: ATORVASTATIN CALCIUM 20 MG TABLET PO (20:10)
[2024-02-19] VITALS (7 sets, daily range): BP systolic 109–146; BP diastolic 57–86; PULSE 65–79; RESP 13–19; TEMP 36.1–37.1; O2SAT 97–100; BMI 28.7
[2024-02-19 06:12] LABS: Basophils % (Auto) 0 % (0-2.5); Eosinophils # (Auto) 0.2 Thou/mm3 (0.0-0.5); Eosinophils % (Auto) 3 % (0-10); Hematocrit 24.4 % (41.0-53.0); Immature Granulocytes % (Auto) 1 % (0-0); Immature Granulocytes Auto 0.09 Thou/mm3 (0.00-0.00); Lymphocytes # (Auto) 1.9 Thou/mm3 (1.0-4.8); Lymphocytes % (Auto) 26 % (10-50); Mean Corpuscular Hemoglobin 30.3 pg (25.0-35.0); Mean Corpuscular Volume 89 fL (80-100); Monocytes # (Auto) 0.8 Thou/mm3 (0.0-0.8); Monocytes % (Auto) 11 % (0-12); Neutrophils # (Auto) 4.4 Thou/mm3 (1.8-7.7); Neutrophils % (Auto) 59 % (37-80); Nucleated Red Blood Cell # 0.03 Thou/mm3 (0.00-0.00); Nucleated Red Blood Cell % 0 /100 WBC (0); Platelet Count 192 Thou/mm3 (140-440); RDW Standard Deviation 40.1 fL (35.1-43.9); Red Blood Count 2.74 Miln/mm3 (4.50-5.90); White Blood Count 7.4 Thou/mm3 (3.8-10.6)
[2024-02-19 06:13] LABS: Hemoglobin 8.3 g/dL (13.5-16.0)
[2024-02-19 06:48] LABS: Alanine Aminotransferase 27 U/L (10-49); Albumin, Serum 4.7 gm/dL (3.4-4.8); Albumin/Globulin Ratio 1.9 (1.2-2.2); Alkaline Phosphatase 66 U/L (46-116); Anion Gap 15 (7-16); Aspartate Amino Transferase 23 U/L (0-34); BUN/Creatinine Ratio 10 Ratio (12-20); Bilirubin,Total 0.4 mg/dL (0.3-1.2); Blood Urea Nitrogen 57 mg/dL (9-23); Calcium 9.1 mg/dL (8.3-10.6); Calcium (Corrected) 9.1 mg/dL (8.5-10.1); Carbon Dioxide 24.5 mMol/L (20.0-31.0); Chloride 95 mMol/L (98-107); Creatinine (Component) 5.5 mg/dL (0.6-1.3); Estimated Creatinine Clearance 13.3 mL/min (>60); Globulin 2.5 gm/dL (2.3-3.5); Glucose 208 mg/dL (74-106); Osmolality,Calculated 290 (275-295); Phosphorous 6.4 mg/dL (2.4-5.1); Potassium 4.1 mMol/L (3.4-5.1); Sodium 134 mMol/L (136-145); Total Protein 7.2 gm/dL (5.7-8.2); eGFR 11 See Note
[2024-02-19] MEDS: INSULIN LISPRO (AdmeLOG) 1 UNIT/0.01 ML UNIT 3 UNIT SC (07:22)
[2024-02-19] MEDS: INSULIN LISPRO (AdmeLOG) 1 UNIT/0.01 ML UNIT SC ×3 (07:22→17:24)
--- NOTE | 2024-02-19 08:17 | PD.RESPRO ---
Documentation for date of: 02/18/24 Subjective Subjective Interval history: Overnight events, labs reviewed. The patient examined this a.m. during hemodialysis, tolerating HD well. The patient has no active complaints. After 3rd HD session, pt can be discharged once outpt dialysis chair arrangements are made. Case management aware. Exam Vital Signs Temp Pulse Resp BP Pulse Ox O2 Del Method O2 Flow Rate 97.8 F 71 14 120/57 L 97 Room Air 2 02/19/24 04:00 02/19/24 04:00 02/19/24 04:00 02/19/24 04:00 02/19/24 04:00 02/19/24 04:00 02/16/24 15:30 Narrative Exam GENERAL APPEARANCE: Patient seems to be comfortable, adequately hydrated and nourished. On dialysis HEENT: EOMI, PERRLA NECK: Neck supple, no JVD or bruit CARDIOVASCULAR: Heart regular, no murmurs LUNGS/CHEST: Chest clear to auscultation. No rales, rhonchi, wheezing ABDOMEN: Soft, nontender, nondistended. No masses. Normal bowel sounds. EXTREMITIES: 1+ edema in the lower extremities SKIN: Skin exam normal without any rashes . RIJ dialysis catheter MUSCULOSKELETAL: Rt BKA. Tense Edema in the left lower extremity NEUROLOGICAL : No neurological deficits Objective Labs 02/19/24 05:06 02/19/24 05:06 Labs: Laboratory Results - last 24 hr 02/19/24 05:06 WBC 7.4 RBC 2.74 L Hgb 8.3 L Hct 24.4 L MCV 89 MCH 30.3 MCHC 34.0 RDW Std Deviation 40.1 Plt Count 192 Neut % (Auto) 59 Lymph % (Auto) 26 [place] % (Auto) 11 Eos % (Auto) 3 Baso % (Auto) 0 Neut # (Auto) 4.4 Lymph # (Auto) 1.9 [place] # (Auto) 0.8 Eos # (Auto) 0.2 Baso # (Auto) 0.0 Immature Gran # (Auto) 0.09 H Absolute Nucleated RBC 0.03 H Immature Gran % 1 H Nucleated RBC % 0 Sodium 134 L Potassium 4.1 Chloride 95 L Carbon Dioxide 24.5 Anion Gap 15 BUN 57 H Creatinine 5.5 H* D Estim Creat Clear Calc 13.3 L eGFR 11 L* BUN/Creatinine Ratio 10 L Glucose 208 H D Calculated Osmolality 290 Calcium 9.1 Corrected Calcium 9.1 Phosphorus 6.4 H Magnesium 2.0 Total Bilirubin 0.4 AST 23 ALT 27 Alkaline Phosphatase 66 Total Protein 7.2 Albumin 4.7 Globulin 2.5 Albumin/Globulin Ratio 1.9 Quality Measures Quality Measures none Assessment & Plan Assessment Current Active Medications: Generic Name Dose Route Start Last Admin Trade Name Freq PRN Reason Stop Dose Admin Acetaminophen 650 mg 02/15/24 13:47 Acetaminophen 325 Mg Tablet PO 03/16/24 13:46 Q6H PRN Fever >100.5 Acetaminophen 650 mg 02/15/24 13:47 Acetaminophen 325 Mg Tablet PO 03/16/24 13:46 Q6H PRN PAIN SCALE 1-3 (mild Apixaban 5 mg 02/18/24 21:00 02/18/24 20:10 Apixaban 2.5 Mg Tablet PO 03/10/24 20:59 5 mg BID MIKE Administration Atorvastatin Calcium 20 mg 02/16/24 21:00 02/18/24 20:10 Atorvastatin Calcium 20 Mg Tablet PO 03/17/24 20:59 20 mg HS MIKE Administration Dextrose 25 ml 02/15/24 14:19 Dextrose 50%-Water Inj 50 Ml Syringe IV 03/16/24 14:18 Q15MIN PRN BG 50-70 responsive npo pt Dextrose 50 ml 02/15/24 14:19 Dextrose 50%-Water Inj 50 Ml Syringe IV 03/16/24 14:18 Q15MIN PRN BG <50 OR BG <70 & pt unresponsive Docusate Sodium 100 mg 02/16/24 09:00 02/18/24 13:21 Docusate Sod 100 Mg Capsule PO 03/17/24 08:59 100 mg QDAY MIKE Administration Protocol Glucagon 1 mg 02/15/24 14:19 Glucagon Inj 1 Mg Vial IM Q15MIN PRN BG <70, and no IV access Heparin Sodium (Porcine) 3,300 unit 02/16/24 18:12 02/18/24 12:57 Heparin Sod Inj 1000 Unit/Ml Vial 10 Ml INDWELLCAT 03/01/24 18:11 3,300 unit X1 PRN Administration DIALYSIS Albumin Human 25 gm in 100 mls @ 100 mls/min 02/16/24 18:12 02/18/24 10:45 Albuminar-25 Ivpb IV 100 mls/min PRN PRN Administration DIALYSIS Insulin Glargine 15 unit 02/18/24 09:00 02/18/24 09:34 Insulin Glargine (Lantus) 5 Unit/0.05 Ml (Per 5 Units) SC 03/19/24 08:59 5 unit QDAY MIKE Administration Insulin Human Lispro 0 unit 02/15/24 17:00 02/19/24 07:22 Insulin Lispro (Admelog) 1 Unit/0.01 Ml Unit SC 03/16/24 16:59 3 unit AC MIKE Administration Protocol Insulin Human Lispro 5 unit 02/19/24 11:30 Insulin Lispro (Admelog) 1 Unit/0.01 Ml Unit SC 03/20/24 11:29 AC MIKE Lisinopril 10 mg 02/16/24 09:00 02/18/24 13:21 Lisinopril 2.5 Mg Tablet PO 03/17/24 08:59 10 mg QDAY MIKE Administration Ondansetron HCl 4 mg 02/15/24 13:47 Ondansetron Inj 2 Mg/Ml Inj 2 Ml IV 03/16/24 13:46 Q6H PRN NAUSEA OR VOMITING Protocol Pharmacy Consult 1 each 02/16/24 09:00 Pharmacy To Consult Pneumovacc XX 03/17/24 08:59 PRN PRN CONSULT Plan 63-year-old male with past medical history of hypertension, hyperlipidemia, insulin-dependent diabetes who was sent to the ED by PCP due to abnormal labs. Will be admitted for emergent dialysis due to uremia. #Uremia #Emergent dialysis #CKD V progressing to ESRD Patient is complaining of on and off weakness throughout the year, and lower extremity swelling Admission labs show BUN of 80, creatinine of 4.[address] Marina Baseline creatinine unknown -Pending dialysis catheter placement -Start hemodialysis -Nephrology, Dr. Marina consulted, appreciate recommendations #Hypertension Patient takes lisinopril at home, we will hold at this time due to FREEDMO Resume lisinopril 20 mg daily as taken at home # Insulin-dependent diabetes type 2 -Sliding scale insulin -Hypoglycemia protocol in place Disposition: Telemetry Fluids: None Feeding: Thrombo prophylaxis: Heparin Gastric Ulcer prophylaxis: None CODE STATUS: Full code Plan of care discussed with supervising attending Dr. Imani Manriquez pgy 2 Attending Provider Attestation/Addendum I reviewed labs, imaging, EKG, home medications and prior available records. Face to face evaluation was performed by me. I have personally examined the patient and discussed assessment and plan with the IM team. I reviewed the resident note and agree with the plan with exceptions as below. 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
[2024-02-19] MEDS: Lisinopril 2.5 MG TABLET 10 MG PO (09:55)
[2024-02-19] MEDS: INSULIN GLARGINE (Lantus) 5 UNIT/0.05 ML (PER 5 UNITS) 15 UNIT SC (09:55)
[2024-02-19] MEDS: DOCUSATE SOD 100 MG CAPSULE PO (09:55)
[2024-02-19] MEDS: APIXABAN 2.5 MG TABLET 5 MG PO ×2 (09:56→20:22)
[2024-02-19] MEDS: INSULIN LISPRO (AdmeLOG) 1 UNIT/0.01 ML UNIT 5 UNIT SC ×2 (11:48→17:24)
--- NOTE | 2024-02-19 13:10 | ESPR_ITS ---
Documentation for date of: 02/19/24 Subjective Subjective Interval history: Mr. 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 However patient was very leery and did not come yesterday. He presented today complaining of tired and swelling in the lower extremities and weakness. Labs consistent with advanced kidney failure. Patient admitted to medical team. Nephrology consultation requested in view of need for dialysis. Patient stopped taking Eliquis yesterday. Will get dialysis catheter tomorrow and dialysis will be initiated tomorrow. In the emergency department-blood pressure 152/82, WBC 4.1, hemoglobin 8.2, platelets 285. Sodium 142, potassium 5.1, bicarbonate 19.7, BUN 80, creatinine 4.2, GFR 15, glucose 220, A1c 9.3, calcium 9.2, LFTs normal, albumin 4.9, urinalysis shows 1+ glucose. Patient currently seen in the emergency department. 02/17/2024 patient currently on second dialysis session. Next dialysis scheduled for tomorrow. Outpatient dialysis arrangements to be done. He is feeling much better. Shortness of breath and edema better. Medications, labs ordered. 02/19/2024 patient received 3 dialysis treatments. Renal anderson stable for discharge if outpatient dialysis arrangements made. Labs, medications have been reviewed. Patient feeling much better. Edema markedly improved. Back on Eliquis. Review of Systems Review of Systems Narrative Review of Systems: CONSTITUTIONAL: Patient denies any fever, chills. Feeling slightly better HEENT: Denies any visual disturbances or hearing problems. CARDIOVASCULAR: Patient denies any chest pain. shortness of breath, swelling in the lower extremities- better PULMONARY: Shortness of breath better GASTROINTESTINAL: Patient denies any abdominal pain, constipation, nausea, vomiting, diarrhea. GENITOURINARY: Patient denies any urinary symptoms of burning or frequency or hematuria,++form in the urine. SKIN: Denies any rash. MUSCULOSKELETAL: Denies any muscular skeletal problems of joint pains. NEUROLOGICAL: Denies any neurological problems of strokes, seizures or confusion. Denies any memory problems. Exam Vital Signs Temp Pulse Resp BP Pulse Ox O2 Del Method O2 Flow Rate 37.1 C 75 16 120/62 98 Room Air 2 02/19/24 16:00 02/19/24 16:00 02/19/24 16:00 02/19/24 16:00 02/19/24 16:00 02/19/24 16:02/16/24 15:30 Narrative Exam GENERAL APPEARANCE: Patient seems to be comfortable, adequately hydrated and nourished. HEENT: EOMI, PERRLA NECK: Neck supple, no JVD or bruit CARDIOVASCULAR: Heart regular, no murmurs LUNGS/CHEST: Chest clear to auscultation. No rales, rhonchi, wheezing ABDOMEN: Soft, nontender, nondistended. No masses. Normal bowel sounds. EXTREMITIES: no edema in the lower extremities SKIN: Skin exam normal without any rashes . RIJ dialysis catheter MUSCULOSKELETAL: Rt BKA. Tense Edema in the left lower extremity NEUROLOGICAL : No neurological deficits Objective Labs 02/19/24 05:06 02/19/24 05:06 Labs: Laboratory Results - last 24 hr 02/19/24 05:06 WBC 7.4 RBC 2.74 L Hgb 8.3 L Hct 24.4 L MCV 89 MCH 30.3 MCHC 34.0 RDW Std Deviation 40.1 Plt Count 192 Neut % (Auto) 59 Lymph % (Auto) 26 [place] % (Auto) 11 Eos % (Auto) 3 Baso % (Auto) 0 Neut # (Auto) 4.4 Lymph # (Auto) 1.9 [place] # (Auto) 0.8 Eos # (Auto) 0.2 Baso # (Auto) 0.0 Immature Gran # (Auto) 0.09 H Absolute Nucleated RBC 0.03 H Immature Gran % 1 H Nucleated RBC % 0 Sodium 134 L Potassium 4.1 Chloride 95 L Carbon Dioxide 24.5 Anion Gap 15 BUN 57 H Creatinine 5.5 H* D Estim Creat Clear Calc 13.3 L eGFR 11 L* BUN/Creatinine Ratio 10 L Glucose 208 H D Calculated Osmolality 290 Calcium 9.1 Corrected Calcium 9.1 Phosphorus 6.4 H Magnesium 2.0 Total Bilirubin 0.4 AST 23 ALT 27 Alkaline Phosphatase 66 Total Protein 7.2 Albumin 4.7 Globulin 2.5 Albumin/Globulin Ratio 1.9 Assessment & Plan Assessment and plan (1) Diabetes: Status: Acute (2) Hypertension: Status: Acute (3) Anemia: Status: Acute (4) Hyperlipidemia: Status: Acute (5) ESRD needing dialysis: Status: Acute (6) Acute renal failure: Status: Acute (7) CKD stage 5 due to type 2 diabetes mellitus: Status: Acute Additional Assessment & Plan Additional Plan: (1) End-stage renal failure: Secondary to diabetic nephropathy Status: Acute Assessment and plan: Patient has a worsening renal function with underlying CKD stage IV/V secondary to diabetic/hypertensive nephrosclerosis progressed towards ESRD.. Has been under my care for the last couple of years. Poorly controlled diabetes and hypertension. Sent to the hospital for need for dialysis due to his worsening azotemia. Patient consented for dialysis. Dialysis catheter placed. patient so far received 3 dialysis treatments. Next dialysis scheduled for Tuesday. Outpatient dialysis will be arranged. Hepatitis nl, PPD placed. (2) CKD stage 5 due to type 2 diabetes mellitus: Status: Acute Assessment and plan: CKD stage V secondary to diabetic nephropathy/hypertension-progressed to ESRD All the sequelae-anemia, renal osteodystrophy, nephropathy,, edema (3) Diabetes: Status: Acute Assessment and plan: Accu-Cheks, sliding scale. A1c 9.2. (4) Hypertension: Status: Acute Assessment and plan: At home he is on lisinopril-can be initiated as patient will start dialysis. (5) Anemia: Status: Acute Assessment and plan: Will give iron, Epogen with dialysis (6) Hyperlipidemia: Status: Acute Assessment and plan: Switch fenofibrate to statin.
--- NOTE | 2024-02-19 13:23 | ESPR_ITS ---
Documentation for date of: 02/19/24 Subjective Subjective Interval history: Patient seen at bedside today. Still pending a chair time in the outpatient setting. Will remain hospitalized for chair time is obtained Exam Vital Signs Temp Pulse Resp BP Pulse Ox O2 Del Method O2 Flow Rate 98.1 F 77 19 145/67 H 98 Room Air 2 02/19/24 12:00 02/19/24 12:00 02/19/24 12:00 02/19/24 12:00 02/19/24 12:00 02/19/24 12:00 02/16/24 15:30 Narrative Exam GENERAL APPEARANCE: Patient seems to be comfortable, adequately hydrated and nourished. On dialysis HEENT: EOMI, PERRLA NECK: Neck supple, no JVD or bruit CARDIOVASCULAR: Heart regular, no murmurs LUNGS/CHEST: Chest clear to auscultation. No rales, rhonchi, wheezing ABDOMEN: Soft, nontender, nondistended. No masses. Normal bowel sounds. EXTREMITIES: 1+ edema in the lower extremities SKIN: Skin exam normal without any rashes . RIJ dialysis catheter MUSCULOSKELETAL: Rt BKA. Tense Edema in the left lower extremity NEUROLOGICAL : No neurological deficits Objective Labs 02/20/24 04:42 02/20/24 04:42 Labs: Laboratory Results - last 24 hr 02/19/24 05:06 WBC 7.4 RBC 2.74 L Hgb 8.3 L Hct 24.4 L MCV 89 MCH 30.3 MCHC 34.0 RDW Std Deviation 40.1 Plt Count 192 Neut % (Auto) 59 Lymph % (Auto) 26 [place] % (Auto) 11 Eos % (Auto) 3 Baso % (Auto) 0 Neut # (Auto) 4.4 Lymph # (Auto) 1.9 [place] # (Auto) 0.8 Eos # (Auto) 0.2 Baso # (Auto) 0.0 Immature Gran # (Auto) 0.09 H Absolute Nucleated RBC 0.03 H Immature Gran % 1 H Nucleated RBC % 0 Sodium 134 L Potassium 4.1 Chloride 95 L Carbon Dioxide 24.5 Anion Gap 15 BUN 57 H Creatinine 5.5 H* D Estim Creat Clear Calc 13.3 L eGFR 11 L* BUN/Creatinine Ratio 10 L Glucose 208 H D Calculated Osmolality 290 Calcium 9.1 Corrected Calcium 9.1 Phosphorus 6.4 H Magnesium 2.0 Total Bilirubin 0.4 AST 23 ALT 27 Alkaline Phosphatase 66 Total Protein 7.2 Albumin 4.7 Globulin 2.5 Albumin/Globulin Ratio 1.9 Quality Measures Quality Measures none Assessment & Plan Assessment Current Active Medications: Generic Name Dose Route Start Last Admin Trade Name Freq PRN Reason Stop Dose Admin Acetaminophen 650 mg 02/15/24 13:47 Acetaminophen 325 Mg Tablet PO 03/16/24 13:46 Q6H PRN Fever >100.5 Acetaminophen 650 mg 02/15/24 13:47 Acetaminophen 325 Mg Tablet PO 03/16/24 13:46 Q6H PRN PAIN SCALE 1-3 (mild Apixaban 5 mg 02/18/24 21:00 02/19/24 09:56 Apixaban 2.5 Mg Tablet PO 03/10/24 20:59 5 mg BID MIKE Administration Atorvastatin Calcium 20 mg 02/16/24 21:00 02/18/24 20:10 Atorvastatin Calcium 20 Mg Tablet PO 03/17/24 20:59 20 mg HS MIKE Administration Dextrose 25 ml 02/15/24 14:19 Dextrose 50%-Water Inj 50 Ml Syringe IV 03/16/24 14:18 Q15MIN PRN BG 50-70 responsive npo pt Dextrose 50 ml 02/15/24 14:19 Dextrose 50%-Water Inj 50 Ml Syringe IV 03/16/24 14:18 Q15MIN PRN BG <50 OR BG <70 & pt unresponsive Docusate Sodium 100 mg 02/16/24 09:00 02/19/24 09:55 Docusate Sod 100 Mg Capsule PO 03/17/24 08:59 100 mg QDAY MIKE Administration Protocol Glucagon 1 mg 02/15/24 14:19 Glucagon Inj 1 Mg Vial IM Q15MIN PRN BG <70, and no IV access Heparin Sodium (Porcine) 3,300 unit 02/16/24 18:12 02/18/24 12:57 Heparin Sod Inj 1000 Unit/Ml Vial 10 Ml INDWELLCAT 03/01/24 18:11 3,300 unit X1 PRN Administration DIALYSIS Albumin Human 25 gm in 100 mls @ 100 mls/min 02/16/24 18:12 02/18/24 10:45 Albuminar-25 Ivpb IV 100 mls/min PRN PRN Administration DIALYSIS Insulin Glargine 15 unit 02/18/24 09:00 02/19/24 09:55 Insulin Glargine (Lantus) 5 Unit/0.05 Ml (Per 5 Units) SC 03/19/24 08:59 15 unit QDAY MIKE Administration Insulin Human Lispro 0 unit 02/15/24 17:00 02/19/24 11:48 Insulin Lispro (Admelog) 1 Unit/0.01 Ml Unit SC 03/16/24 16:59 5 unit AC MIKE Administration Protocol Insulin Human Lispro 5 unit 02/19/24 11:30 02/19/24 11:48 Insulin Lispro (Admelog) 1 Unit/0.01 Ml Unit SC 03/20/24 11:29 5 unit AC MIKE Administration Lisinopril 10 mg 02/16/24 09:00 02/19/24 09:55 Lisinopril 2.5 Mg Tablet PO 03/17/24 08:59 10 mg QDAY MIKE Administration Ondansetron HCl 4 mg 02/15/24 13:47 Ondansetron Inj 2 Mg/Ml Inj 2 Ml IV 03/16/24 13:46 Q6H PRN NAUSEA OR VOMITING Protocol Pharmacy Consult 1 each 02/16/24 09:00 Pharmacy To Consult Pneumovacc XX 03/17/24 08:59 PRN PRN CONSULT Plan 63-year-old male with past medical history of hypertension, hyperlipidemia, insulin-dependent diabetes who was sent to the ED by PCP due to abnormal labs. Will be admitted for emergent dialysis due to uremia. #Uremia #Emergent dialysis #CKD V progressing to ESRD Patient is complaining of on and off weakness throughout the year, and lower extremity swelling Admission labs show BUN of 80, creatinine of 4.[address] Marina Baseline creatinine unknown -Dialysis catheter placed and patient has had 3 hemodialysis sessions -Medically cleared from nephrology standpoint -Nephrology, Dr. Marina consulted, appreciate recommendations ?Still pending dialysis chair #Hypertension Patient takes lisinopril at home, we will hold at this time due to FREEDOM Resume lisinopril 20 mg daily as taken at home # Insulin-dependent diabetes type 2 -Sliding scale insulin -Hypoglycemia protocol in place Disposition: Med/tele for new onset hemodialysis Fluids: None Feeding: Thrombo prophylaxis: Heparin Gastric Ulcer prophylaxis: None CODE STATUS: Full code Plan of care discussed with supervising attending Dr. Imani Curiel M.D. PGY-3 Attending Provider Attestation/Addendum I reviewed labs, imaging, EKG, home medications and prior available records. Face to face evaluation was performed by me. I have personally examined the patient and discussed assessment and plan with the IM team. I reviewed the resident note and agree with the plan with exceptions as below. ESRD Insulin-dependent diabetes mellitus New hemodialysis candidate Chronic anemia, likely anemia of CKD History of DVT Uncontrolled diabetes mellitus with hyperglycemia, insulin-dependent Status post dialysis line insertion by IR Started hemodialysis per nephrology Monitor BMP Monitor H&H Resumed home insulin and monitor fingersticks. 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
[2024-02-19] MEDS: ATORVASTATIN CALCIUM 20 MG TABLET PO (20:22)
[2024-02-20] VITALS (20 sets, daily range): BP systolic 97–159; BP diastolic 60–93; PULSE 68–79; RESP 14–18; TEMP 36.3–36.8; O2SAT 96–99; BMI 30.5
[2024-02-20 06:16] LABS: Basophils % (Auto) 1 % (0-2.5); Eosinophils # (Auto) 0.3 Thou/mm3 (0.0-0.5); Eosinophils % (Auto) 5 % (0-10); Hematocrit 22.7 % (41.0-53.0); Immature Granulocytes % (Auto) 1 % (0-0); Immature Granulocytes Auto 0.07 Thou/mm3 (0.00-0.00); Lymphocytes # (Auto) 2.3 Thou/mm3 (1.0-4.8); Lymphocytes % (Auto) 37 % (10-50); Mean Corpuscular HGB Conc 34.4 g/dl (31.0-37.0); Mean Corpuscular Hemoglobin 30.2 pg (25.0-35.0); Mean Corpuscular Volume 88 fL (80-100); Monocytes # (Auto) 0.7 Thou/mm3 (0.0-0.8); Monocytes % (Auto) 11 % (0-12); Neutrophils # (Auto) 2.8 Thou/mm3 (1.8-7.7); Neutrophils % (Auto) 45 % (37-80); Nucleated Red Blood Cell # 0.02 Thou/mm3 (0.00-0.00); Nucleated Red Blood Cell % 0 /100 WBC (0); Platelet Count 208 Thou/mm3 (140-440); RDW Standard Deviation 39.4 fL (35.1-43.9); Red Blood Count 2.58 Miln/mm3 (4.50-5.90); White Blood Count 6.3 Thou/mm3 (3.8-10.6)
[2024-02-20 06:17] LABS: Hemoglobin 7.8 g/dL (13.5-16.0)
[2024-02-20 06:31] LABS: Alanine Aminotransferase 30 U/L (10-49); Albumin, Serum 4.2 gm/dL (3.4-4.8); Albumin/Globulin Ratio 1.5 (1.2-2.2); Alkaline Phosphatase 71 U/L (46-116); Anion Gap 12 (7-16); Aspartate Amino Transferase 28 U/L (0-34); BUN/Creatinine Ratio 12 Ratio (12-20); Bilirubin,Total 0.3 mg/dL (0.3-1.2); Blood Urea Nitrogen 77 mg/dL (9-23); Calcium 8.9 mg/dL (8.3-10.6); Calcium (Corrected) 8.9 mg/dL (8.5-10.1); Carbon Dioxide 24.7 mMol/L (20.0-31.0); Chloride 95 mMol/L (98-107); Creatinine (Component) 6.2 mg/dL (0.6-1.3); Estimated Creatinine Clearance 12.2 mL/min (>60); Globulin 2.8 gm/dL (2.3-3.5); Glucose 193 mg/dL (74-106); Magnesium 2.2 mg/dL (1.6-2.6); Osmolality,Calculated 292 (275-295); Phosphorous 6.7 mg/dL (2.4-5.1); Sodium 132 mMol/L (136-145); eGFR 10 See Note
[2024-02-20] MEDS: INSULIN LISPRO (AdmeLOG) 1 UNIT/0.01 ML UNIT SC (07:49)
[2024-02-20] MEDS: INSULIN LISPRO (AdmeLOG) 1 UNIT/0.01 ML UNIT 5 UNIT SC (07:50)
--- NOTE | 2024-02-20 09:04 | PD.RESPRO ---
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 Marina for last couple of years and has been declining dialysis the last 6 months and presented to her office with fluid overload and noted to have labs consistent with end-stage kidney disease (BUN 105, creatinine 5.7). She recommended he go to the emergency department for initiation of dialysis. However, patient was very leery and did not go. He eventually presented complaining of fatigue and swelling in the lower extremities. Labs again consistent with advanced kidney failure and admitted by medical team with nephrology consulted in view of need for dialysis. Had catheter placed 02/15 and has since tolerated three dialysis session, currently undergoing fourth today. In ED, BP 152/83, WBC 4.1, hgb 8.2, plt 285. Na 142, K 5.1, bicarb 19.7, BUN 80, Cr 4.2, GFR 15, glucose 220, A1c 9.3, calcium 9.2, LFTs WNL, albumin 4.9, UA showed 1+ glucose. 02/16: Patient on second dialysis session. Next dialysis scheduled for tomorrow. Outpatient dialysis arrangements to be done. He is feeling much better. Shortness of breath and edema better. Medications and labs reviewed. 02/18: Patient received three dialysis treatments. From nephrology standpoint, stable for discharge if outpatient dialysis arrangements made. Labs and medications have been reviewed. Patient feeling much better. Edema markedly improved. Back on [facility]. 02/19: Patient seen while undergoing fourth dialysis session with planned removal of 1 L and tolerating well. Stable for discharge if outpatient dialysis arrangements made. Labs and medications have been reviewed. Exam Vital Signs Temp Pulse Resp BP Pulse Ox O2 Del Method O2 Flow Rate 98 F 73 18 119/74 96 Room Air 2 02/20/24 08:00 02/20/24 09:00 02/20/24 08:00 02/20/24 09:00 02/20/24 08:00 02/20/24 04:00 02/16/24 15:30 Narrative Exam General: AOx3, no acute distress, able to speak full sentences HEENT: NC/AT, mucous membranes moist, bilateral sclera anicteric Cardiovascular: regular rate and rhythm, S1/S2 present, no murmurs appreciated Pulmonary: clear to auscultation bilaterally, no rales/rhonchi/wheezes Abdominal: soft, non-tender, non-distended, no rebound/guarding, normal bowel sounds present Musculoskeletal: right BKA, normal ROM, no peripheral edema Skin: RIJ dialysis catheter, warm and dry, intact, no rashes Neuro: CN II-XII intact, no focal deficits Objective Labs 02/20/24 04:42 02/20/24 04:42 Labs: Laboratory Results - last 24 hr 02/20/24 04:42 WBC 6.3 RBC 2.58 L Hgb 7.8 L Hct 22.7 L MCV 88 MCH 30.2 MCHC 34.4 RDW Std Deviation 39.4 Plt Count 208 Neut % (Auto) 45 Lymph % (Auto) 37 [place] % (Auto) 11 Eos % (Auto) 5 Baso % (Auto) 1 Neut # (Auto) 2.8 Lymph # (Auto) 2.3 [place] # (Auto) 0.7 Eos # (Auto) 0.3 Baso # (Auto) 0.0 Immature Gran # (Auto) 0.07 H Absolute Nucleated RBC 0.02 H Immature Gran % 1 H Nucleated RBC % 0 Sodium 132 L Potassium 4.0 Chloride 95 L Carbon Dioxide 24.7 Anion Gap 12 BUN 77 H Creatinine 6.2 H* D Estim Creat Clear Calc 12.2 L eGFR 10 L* BUN/Creatinine Ratio 12 Glucose 193 H Calculated Osmolality 292 Calcium 8.9 Corrected Calcium 8.9 Phosphorus 6.7 H Magnesium 2.2 Total Bilirubin 0.3 AST 28 ALT 30 Alkaline Phosphatase 71 Total Protein 7.0 Albumin 4.2 D Globulin 2.8 Albumin/Globulin Ratio 1.5 Quality Measures Quality Measures none Assessment & Plan Assessment Current Active Medications: Generic Name Dose Route Start Last Admin Trade Name Freq PRN Reason Stop Dose Admin Acetaminophen 650 mg 02/15/24 13:47 Acetaminophen 325 Mg Tablet PO 03/16/24 13:46 Q6H PRN Fever >100.5 Acetaminophen 650 mg 02/15/24 13:47 Acetaminophen 325 Mg Tablet PO 03/16/24 13:46 Q6H PRN PAIN SCALE 1-3 (mild Apixaban 5 mg 02/18/24 21:00 02/19/24 20:22 Apixaban 2.5 Mg Tablet PO 03/10/24 20:59 5 mg BID MIKE Administration Atorvastatin Calcium 20 mg 02/16/24 21:00 02/19/24 20:22 Atorvastatin Calcium 20 Mg Tablet PO 03/17/24 20:59 20 mg HS MIKE Administration Dextrose 25 ml 02/15/24 14:19 Dextrose 50%-Water Inj 50 Ml Syringe IV 03/16/24 14:18 Q15MIN PRN BG 50-70 responsive npo pt Dextrose 50 ml 02/15/24 14:19 Dextrose 50%-Water Inj 50 Ml Syringe IV 03/16/24 14:18 Q15MIN PRN BG <50 OR BG <70 & pt unresponsive Docusate Sodium 100 mg 02/16/24 09:00 02/19/24 09:55 Docusate Sod 100 Mg Capsule PO 03/17/24 08:59 100 mg QDAY MIKE Administration Protocol Epoetin Evens 10,000 unit 02/20/24 10:00 Epoetin Evens-Epbx Inj 40,000 Unit/Ml Vial (Esrd) SC 02/20/24 10:01 X1 ONE Glucagon 1 mg 02/15/24 14:19 Glucagon Inj 1 Mg Vial IM Q15MIN PRN BG <70, and no IV access Heparin Sodium (Porcine) 3,300 unit 02/16/24 18:12 02/18/24 12:57 Heparin Sod Inj 1000 Unit/Ml Vial 10 Ml INDWELLCAT 03/01/24 18:11 3,300 unit X1 PRN Administration DIALYSIS Albumin Human 25 gm in 100 mls @ 100 mls/min 02/16/24 18:12 02/18/24 10:45 Albuminar-25 Ivpb IV 100 mls/min PRN PRN Administration DIALYSIS Insulin Glargine 15 unit 02/18/24 09:00 02/19/24 09:55 Insulin Glargine (Lantus) 5 Unit/0.05 Ml (Per 5 Units) SC 03/19/24 08:59 15 unit QDAY MKIE Administration Insulin Human Lispro 0 unit 02/15/24 17:00 02/20/24 07:49 Insulin Lispro (Admelog) 1 Unit/0.01 Ml Unit SC 03/16/24 16:59 3 unit AC MIKE Administration Protocol Insulin Human Lispro 5 unit 02/19/24 11:30 02/20/24 07:50 Insulin Lispro (Admelog) 1 Unit/0.01 Ml Unit SC 03/20/24 11:29 5 unit AC MIKE Administration Lisinopril 10 mg 02/16/24 09:00 02/19/24 09:55 Lisinopril 2.5 Mg Tablet PO 03/17/24 08:59 10 mg QDAY MIKE Administration Ondansetron HCl 4 mg 02/15/24 13:47 Ondansetron Inj 2 Mg/Ml Inj 2 Ml IV 03/16/24 13:46 Q6H PRN NAUSEA OR VOMITING Protocol Pharmacy Consult 1 each 02/16/24 09:00 Pharmacy To Consult Pneumovacc XX 03/17/24 08:59 PRN PRN CONSULT Plan Cain Arreaga is a 63-year-old gentleman with extensive past medical history of diabetes for more than 20 years complicated with diabetic retinopathy, nephropathy, peripheral vascular disease, hypertension, dyslipidemia, 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 Marina for last couple of years and has been declining dialysis the last 6 months and presented to her office with fluid overload and noted to have labs consistent with end-stage kidney disease (BUN 105, creatinine 5.7). Admitted for initiation of dialysis. #ESRD, secondary to diabetic nephropathy #CKD stage V due to type 2 diabetes mellitus Worsening renal function with underlying CKD stage IV/V secondary to diabetic/hypertensive nephrosclerosis that has progressed towards ESRD. Has been under care of Dr. Gaona for the last couple of years with poorly controlled diabetes and hypertension. Sent to hospital for need for dialysis in light of worsening azotemia. Patient consented for dialysis and dialysis catheter was placed on 02/15. Currently undergoing fourth dialysis session. Outpatient dialysis to be arranged, with normal hepatitis panel and PPD placed. ? Hemodialysis today with removal of 1 L #Anemia, likely secondary to ESRD ? Will give iron and Epogen with dialysis #Diabetes mellitus #Hypertension #Hyperlipidemia ? Continue management per primary team ----- Plan discussed with attending physician Dr. Salas Voss MD PGY-1 Internal Medicine Attending Provider Attestation/Addendum Seen and examined with resident physician Dr. Smith. Note reviewed, agree with findings and recommendations. Patient currently seen on dialysis. Tolerating dialysis without any problems. Hemodialysis for 3 hours, 2K, ultrafiltration 1 L, Epogen 6000, no heparin ordered. Plan of care discussed with the dialysis nurse. Please see dialysis flowsheet for further details. Outpatient dialysis arranged Renal anderson stable for discharge.
--- NOTE | 2024-02-20 10:19 | PC.SS ---
Follow up note: SS followed up with Tricia at [facility] who explained patient's dialysis chair time is pending insurance authorization. Pt is having dialysis today.
[2024-02-20] MEDS: EPOETIN ALFA-EPBX INJ 40,000 UNIT/ML VIAL (ESRD) 10000 UNIT SC (10:57)
--- NOTE | 2024-02-20 11:01 | PD.RESPRO ---
Documentation for date of: 02/20/24 Subjective Subjective Interval history: Patient seen at bedside today. Still pending a chair time in the outpatient setting Exam Vital Signs Temp Pulse Resp BP Pulse Ox O2 Del Method O2 Flow Rate 98.2 F 71 18 100/72 96 Room Air 2 02/20/24 10:46 02/20/24 10:45 02/20/24 10:46 02/20/24 10:45 02/20/24 10:46 02/20/24 04:00 02/16/24 15:30 Narrative Exam Physical Exam GENERAL: NAD, AAOx3 HEENT: Moist mucosa. Eyes open, symmetrical, & clear, RIJ dialysis catheter CARDIO: Heart RRR, no obvious murmurs PULM: No noted coughing/dyspnea CTA B/L, no R/W/R GI: Abdomen soft, nondistended, no pain on palpation. BSx4 SKIN/MSK/EXT: No wounds/rashes/edema/amputations, no pain on palpation. Pedal pulses present B/L NEURO: AAOx3, no focal neuro deficits, able to move all 4 extremities Objective Labs 02/20/24 04:42 02/20/24 04:42 Labs: Laboratory Results - last 24 hr 02/20/24 02/20/24 04:42 10:39 WBC 6.3 RBC 2.58 L Hgb 7.8 L Hct 22.7 L MCV 88 MCH 30.2 MCHC 34.4 RDW Std Deviation 39.4 Plt Count 208 Neut % (Auto) 45 Lymph % (Auto) 37 [place] % (Auto) 11 Eos % (Auto) 5 Baso % (Auto) 1 Neut # (Auto) 2.8 Lymph # (Auto) 2.3 [place] # (Auto) 0.7 Eos # (Auto) 0.3 Baso # (Auto) 0.0 Immature Gran # (Auto) 0.07 H Absolute Nucleated RBC 0.02 H Immature Gran % 1 H Nucleated RBC % 0 Sodium 132 L Potassium 4.0 Chloride 95 L Carbon Dioxide 24.7 Anion Gap 12 BUN 77 H Creatinine 6.2 H* D Estim Creat Clear Calc 12.2 L eGFR 10 L* BUN/Creatinine Ratio 12 Glucose 193 H Calculated Osmolality 292 Calcium 8.9 Corrected Calcium 8.9 Phosphorus 6.7 H Magnesium 2.2 Total Bilirubin 0.3 AST 28 ALT 30 Alkaline Phosphatase 71 Total Protein 7.0 Albumin 4.2 D Globulin 2.8 Albumin/Globulin Ratio 1.5 Crossmatch See Detail Quality Measures Quality Measures none Assessment & Plan Assessment Current Active Medications: Generic Name Dose Route Start Last Admin Trade Name Freoliva PRN Reason Stop Dose Admin Acetaminophen 650 mg 02/15/24 13:47 Acetaminophen 325 Mg Tablet PO 03/16/24 13:46 Q6H PRN Fever >100.5 Acetaminophen 650 mg 02/15/24 13:47 Acetaminophen 325 Mg Tablet PO 03/16/24 13:46 Q6H PRN PAIN SCALE 1-3 (mild Apixaban 5 mg 02/18/24 21:00 02/19/24 20:22 Apixaban 2.5 Mg Tablet PO 03/10/24 20:59 5 mg BID MIKE Administration Atorvastatin Calcium 20 mg 02/16/24 21:00 02/19/24 20:22 Atorvastatin Calcium 20 Mg Tablet PO 03/17/24 20:59 20 mg HS MIKE Administration Dextrose 25 ml 02/15/24 14:19 Dextrose 50%-Water Inj 50 Ml Syringe IV 03/16/24 14:18 Q15MIN PRN BG 50-70 responsive npo pt Dextrose 50 ml 02/15/24 14:19 Dextrose 50%-Water Inj 50 Ml Syringe IV 03/16/24 14:18 Q15MIN PRN BG <50 OR BG <70 & pt unresponsive Docusate Sodium 100 mg 02/16/24 09:00 02/19/24 09:55 Docusate Sod 100 Mg Capsule PO 03/17/24 08:59 100 mg QDAY MIKE Administration Protocol Glucagon 1 mg 02/15/24 14:19 Glucagon Inj 1 Mg Vial IM Q15MIN PRN BG <70, and no IV access Heparin Sodium (Porcine) 3,300 unit 02/16/24 18:12 02/18/24 12:57 Heparin Sod Inj 1000 Unit/Ml Vial 10 Ml INDWELLCAT 03/01/24 18:11 3,300 unit X1 PRN Administration DIALYSIS Albumin Human 25 gm in 100 mls @ 100 mls/min 02/16/24 18:12 02/18/24 10:45 Albuminar-25 Ivpb IV 100 mls/min PRN PRN Administration DIALYSIS Insulin Glargine 18 unit 02/21/24 09:00 Insulin Glargine (Lantus) 5 Unit/0.05 Ml (Per 5 Units) SC 03/22/24 08:59 QDAY MIKE Insulin Human Lispro 0 unit 02/15/24 17:00 02/20/24 07:49 Insulin Lispro (Admelog) 1 Unit/0.01 Ml Unit SC 03/16/24 16:59 3 unit AC MIKE Administration Protocol Insulin Human Lispro 6 unit 02/20/24 11:30 Insulin Lispro (Admelog) 1 Unit/0.01 Ml Unit SC 03/21/24 11:29 AC [facility] Lisinopril 10 mg 02/16/24 09:00 02/19/24 09:55 Lisinopril 2.5 Mg Tablet PO 03/17/24 08:59 10 mg QDAY MIKE Administration Ondansetron HCl 4 mg 02/15/24 13:47 Ondansetron Inj 2 Mg/Ml Inj 2 Ml IV 03/16/24 13:46 Q6H PRN NAUSEA OR VOMITING Protocol Pharmacy Consult 1 each 02/16/24 09:00 Pharmacy To Consult Pneumovacc XX 03/17/24 08:59 PRN PRN CONSULT Plan 63-year-old male with past medical history of hypertension, hyperlipidemia, insulin-dependent diabetes who was sent to the ED by PCP due to abnormal labs. Will be admitted for emergent dialysis due to uremia. #Uremia #Emergent dialysis #CKD V progressing to ESRD Patient is complaining of on and off weakness throughout the year, and lower extremity swelling Admission labs show BUN of 80, creatinine of 4.[address] Marina Baseline creatinine unknown -Dialysis catheter placed and patient has had 3 hemodialysis sessions -Medically cleared from nephrology standpoint -Nephrology, Dr. Marina consulted, appreciate recommendations ?Still pending dialysis chair #Hypertension Patient takes lisinopril at home, we will hold at this time due to FREEDOM Resume lisinopril 20 mg daily as taken at home # Insulin-dependent diabetes type 2 -Sliding scale insulin -Hypoglycemia protocol in place Plan of care discussed with my senior Dr. Manriquez PGY-[address] Imani eLon MD PGY-1 Disposition: Med/tele for new onset hemodialysis Fluids: None Feeding: Thrombo prophylaxis: Heparin Gastric Ulcer prophylaxis: None CODE STATUS: Full code Attending Provider Attestation/Addendum I reviewed labs, imaging, EKG, home medications and prior available records. Face to face evaluation was performed by me. I have personally examined the patient and discussed assessment and plan with the IM team. I reviewed the resident note and agree with the plan with exceptions as below. See discharge summary
[2024-02-20] MEDS: Lisinopril 2.5 MG TABLET 10 MG PO (11:48)
[2024-02-20] MEDS: DOCUSATE SOD 100 MG CAPSULE PO (11:48)
[2024-02-20] MEDS: APIXABAN 2.5 MG TABLET 5 MG PO (11:48)
--- NOTE | 2024-02-20 14:47 | PC.SS ---
SS received phone call from Tricia at Dialysis who provided SS with patient's dialysis chair time. Tuesday, , and Tuesday at 11:15am with Dr. Marina at [facility]. First session is Tuesday02-21-24 at 10:45am. SS provided pt with [employer] with dialysis chair time, address, and phone#. SS reviewed dialysis chair time with pt.
--- NOTE | 2024-02-20 14:56 | PD.RESDS ---
Planned Discharge Date 02/20/24 DS: Providers Provider Date of admission: 02/15/24 13:47 Primary care physician: Dell Betts([facility]), [employer] [employer] Admitting Provider: Epifanio Diallo MD Attending Provider on Admission: Epifanio Diallo MD Consults: 02/15/24 13:14 Consult to Nephrology Stat Comment: Consulting Provider: Jory Marina 02/17/24 08:00 Referral Discharge Planning Stat Comment: op dialysis at dialysis Attending Provider on DC: Epifanio Diallo MD Discharging Provider: Irvin Leon MD Anticipated date of discharge: 02/20/24 DS: Diagnosis Problem List Completed Was Problem List Reviewed/Reconciled?: Yes Hospital Course Hospital Course Hospital course: 63-year-old male past medical history of hypertension, insulin-dependent diabetes, hyperlipidemia, status post right BKA (5 years ago) who presented to the ED from primary care physician office due to abnormal labs. Patient has been having weakness on and off for the whole year as well as left lower extremity edema. Patient states he feels tired most of the time but have on and off episodes of lethargy. Admitted for uremia and for emergent dialysis. During hospital stay patient had tunneled dialysis catheter placement. Had 3 dialysis sessions with adequate toleration was evaluated and monitored by Software Development Leader Dr. Marina. Hypertension Resume patient's home medication lisinopril. Diabetes was managed with sliding scale insulin. At this time patient is medically stable for discharge. Recommended to follow up with PCP within 1 week of discharge. Recommend taking 30 units of insulin glargine per day, and monitoring blood glucose at home, please follow-up with your primary care physician and go over your medications for diabetes. Recommended to follow up with Software Development Leader Dr. Marina and to continue Hemodialysis as scheduled. Should any symptom recur or worsen patient is instructed to return to the ED. Dialysis Meg[place] time is Tuesday, , and Tuesday at 11:15am with Dr. Marina at [facility] address: [address] [place] [address] Dr. Mercy Morillo. phone number [phone]. First session is Tuesday02-21-24 at 10:45am Problem list: #Uremia #New hemodialysis patient #CKD stage IV progressing to ESRD #FREEDOM #Hypertension # Insulin-dependent diabetes type 2 Case discussed with my attending Dr. Imani Leon MD PGY-1 Status at Discharge Functional status at discharge: independent ambulation Overall status at discharge: patient is back to baseline Time Spent with Patient Time attestation: Total time spent providing and/or coordinating discharge services: Time spent: Greater than 30 minutes Exam Vital Signs Temp Pulse Resp BP Pulse Ox O2 Del Method O2 Flow Rate 97.4 F 79 18 114/93 H 97 Room Air 2 02/20/24 12:02/20/24 12:02/20/24 12:02/20/24 12:02/20/24 12:02/20/24 12:02/16/24 15:30 Narrative Exam Physical Exam GENERAL: NAD, AAOx3 HEENT: Moist mucosa. Eyes open, symmetrical, & clear CARDIO: Heart RRR, no obvious murmurs PULM: No noted coughing/dyspnea CTA B/L, no R/W/R GI: Abdomen soft, nondistended, no pain on palpation. BSx4 SKIN/MSK/EXT: Right BKA with prosthesis, left lower extremity edema +1, no pain on palpation. Pedal pulses present B/L NEURO: AAOx3, no focal neuro deficits, able to move all 4 extremities Discharge Plan Plan Patient Disposition: HOME (Self Care) Patient condition on transfer: Stable Care Plan Goals: Recommended to follow up with PCP within 1 week of discharge. Recommend taking 30 units of insulin glargine per day, and monitoring blood glucose at home, please follow-up with your primary care physician and go over your medications for diabetes. Recommended to follow up with Software Development Leader Dr. Marina and to continue Hemodialysis as scheduled Should any symptom recur or worsen patient is instructed to return to the ED. Dialysis Meggan time is Tuesday, , and Tuesday at 11:15am with Dr. Marina at [facility] address: [address] [place] [address] Dr. [place] Fl. phone number [phone]. First session is Tuesday02-21-24 at 10:45am Prescriptions/Referrals Prescriptions/Med Rec: New atorvastatin 20 mg Tablet 20 mg PO HS 30 Days Qty: 30 0RF (DME) FreeStyle Mariely 3 [place] Misc See Rx Instructions .Route Qty: 1 0RF Rx Instructions: As directed (DME) FreeStyle Mariely 3 Sensor Device See Rx Instructions .Route Qty: 1 2RF Rx Instructions: As directed (DME) pen needle, diabetic [1st Tier Unifine Pentips] 32 gauge x 5/32 needle See Rx Instructions .Route Qty: 100 0RF Rx Instructions: As directed Continued lisinopril 20 mg tablet 10 mg PO QDAY fenofibrate 160 mg tablet 160 mg PO QDAY Rybelsus 7 mg tablet 7 mg PO QDAY Eliquis 5 mg tablet 10 mg PO BID MDD 4 Qty: 28 0RF Changed insulin glargine [Basaglar KwikPen U-100 Insulin] 100 unit/mL (3 mL) insulin pen 30 unit subcut QPM 30 Days Qty: 0 0RF Referrals: Roxane([facility]),ROLAN Sharpe [Primary Care Provider] - Patient/Caregiver Discharge Instructions Education Materials: Hemodialysis, Diabetes and Kidney Disease, ED Chronic Kidney Disease (CKD) Print Language: Surinamese Stand Alone Forms: Lacey Award Info., Patient Portal Info Letter Discharge Order Discharge Orders: Discharge (Routine); Ordered 02/20/24 Ordered By: Julián Manriquez Quality Discharge Quality Measures VTE prophylaxis MD Attestestation MD Attestation I reviewed labs, imaging, EKG, home medications and prior available records. Face to face evaluation was performed by me. I have personally examined the patient and discussed assessment and plan with the IM team. I reviewed the resident note and agree with the plan with exceptions as below. ESRD Insulin-dependent diabetes mellitus New hemodialysis candidate Chronic anemia, likely anemia of CKD History of DVT Uncontrolled diabetes mellitus with hyperglycemia, insulin-dependent Status post dialysis line insertion by IR Started hemodialysis per nephrology Continue hemodialysis as outpatient. He got his hemodialysis chair. Discussed with criminal justice social worker Monitor BMP Monitor H&H Resumed home diabetes medications Continue Eliquis for DVT Time spent is 40 minutes. More than 50% of the time was spent on patient education and coordination of care.
== END 2024-02-20 16:12 | disposition home or self-care (01) | DRG 469 ==
LOC: SERX 13:23 → SERHOLD 13:53 → S2NX 20:55 → S3NX 02-16 06:09
PROVIDERS: Internal Medicine; Nurse Practitioner Family; Student in an Organized Health Care Education/Training Program; Admitting Provider Student in an Organized Health Care Education/Training Program; Emergency Provider Emergency Medicine; PCP Nurse Practitioner Family; Visit Provider Student in an Organized Health Care Education/Training Program
DX: N17.9 Acute kidney failure, unspecified (principal); E11.22 Type 2 diabetes mellitus with diabetic chronic kidney disease; N18.6 End stage renal disease; E11.65 Type 2 diabetes mellitus with hyperglycemia; D63.1 Anemia in chronic kidney disease; E11.319 Type 2 diabetes mellitus with unspecified diabetic retinopathy without macular edema; E11.51 Type 2 diabetes mellitus with diabetic peripheral angiopathy without gangrene; E87.70 Fluid overload, unspecified; I10 Essential (primary) hypertension; E78.5 Hyperlipidemia, unspecified; N25.0 Renal osteodystrophy; Z86.718 Personal history of other venous thrombosis and embolism; Z99.2 Dependence on renal dialysis; Z89.511 Acquired absence of right leg below knee; Z79.84 Long term (current) use of oral hypoglycemic drugs; Z79.4 Long term (current) use of insulin; Z79.899 Other long term (current) drug therapy; Z79.01 Long term (current) use of anticoagulants; Z87.891 Personal history of nicotine dependence
CPT/HCPCS: 36415; 76937; 77001; 80053; 80061; 80074; 81001; 83036; 83690; 83735; 84100; 84443; 85025; 85610; 85730; 86580; 86850; 86900; 86901; 86923; 87081; 87086; 93225; 99285; C1750; C1894; J1642; J1643; J1815; J3010; J7050; P9047; Q5105; A9270